=== PATIENT | female | born 1955 | race Caucasian/White ===

== ENCOUNTER → 2022-03-04 10:58 | Outpatient (BNVA) | payer MEDICARE, SELFPAY | PROVIDERS: PCP Physician Assistant Medical; Visit Provider Internal Medicine Rheumatology | DX: M05.9 Rheumatoid arthritis with rheumatoid factor, unspecified (principal); M81.0 Age-related osteoporosis without current pathological fracture; Z79.899 Other long term (current) drug therapy | CPT/HCPCS: 99212 ==

== ENCOUNTER 2022-07-08 14:11 | Outpatient (REF) | payer MEDICARE, SELFPAY ==
[2022-07-08 14:25] LABS: MANUAL DIFF FLAG NO
[2022-07-08 14:43] LABS: Basophils Percent Auto 0.5 % (0-2); Eosinophils Absolute Auto 0.1 X10*3/uL (0.0-0.4); Eosinophils Percent Auto 1.8 % (0-4); Hematocrit 37.4 % (37.0-47.0); Hemoglobin 12.3 g/dl (12.0-16.0); Imm Gran Abs Auto 0.02 X10*3/uL (0.00-0.03); Imm Gran Pct Auto 0.3 % (0.0-0.4); Lymphocytes Absolute Auto 1.4 X10*3/uL (1.2-4.9); Lymphocytes Percent Auto 20.7 % (20-40); Mean Corpuscular HGB Conc 32.9 g/dl (31.0-35.0); Mean Corpuscular Hemoglobin 31.5 pg (27.0-33.0); Mean Corpuscular Volume 95.9 fL (80.0-98.0); Mean Platelet Volume 10.4 fL (9.4-12.3); Monocytes Absolute Auto 0.6 X10*3/uL (0.1-1.2); Monocytes Percent Auto 9.5 % (2-11); Neutrophils Absolute Auto 4.5 x10*3/uL (2.0-8.3); Neutrophils Percent Auto 67.2 % (45-73); Platelet Count 302 X10*3/uL (160-400); White Blood Count 6.7 X10*3/uL (4.8-10.8)
[2022-07-08 15:04] LABS: Alanine Aminotransferase 21 U/L (0-31); Aspartate Amino Transferase 19 U/L (5-31); C Reactive Protein 0.42 mg/dL (< or = 0.50); Estimated Glomerular Filt Rate > 60
[2022-07-08 15:23] LABS: Erythrocyte Sedimentation Rate 7 MM/HR (0-20)
== END 2022-07-08 14:12 | disposition home or self-care (01) ==
LOC: HO.LAB 14:11
PROVIDERS: PCP Physician Assistant Medical; Visit Provider Internal Medicine Rheumatology
DX: M05.9 Rheumatoid arthritis with rheumatoid factor, unspecified (principal); Z79.899 Other long term (current) drug therapy
CPT/HCPCS: 36415; 82565; 84450; 84460; 85025; 85652; 86140

== ENCOUNTER → 2022-07-16 08:39 | Outpatient (BNVA) | payer MEDICARE, SELFPAY | PROVIDERS: PCP Physician Assistant Medical; Visit Provider Internal Medicine Rheumatology | DX: M05.9 Rheumatoid arthritis with rheumatoid factor, unspecified (principal); M81.0 Age-related osteoporosis without current pathological fracture; Z79.899 Other long term (current) drug therapy | CPT/HCPCS: 99212 ==

== ENCOUNTER 2022-10-24 08:04 | Outpatient (REF) | payer MEDICARE, SELFPAY ==
[2022-10-24 10:22] LABS: MANUAL DIFF FLAG NO
[2022-10-24 10:29] LABS: Basophils Absolute Auto 0.1 X10*3/uL (0.0-0.2); Basophils Percent Auto 0.7 % (0-2); Eosinophils Absolute Auto 0.2 X10*3/uL (0.0-0.4); Eosinophils Percent Auto 2.3 % (0-4); Hematocrit 39.4 % (37.0-47.0); Hemoglobin 12.9 g/dl (12.0-16.0); Imm Gran Abs Auto 0.03 X10*3/uL (0.00-0.03); Imm Gran Pct Auto 0.3 % (0.0-0.4); Lymphocytes Absolute Auto 1.9 X10*3/uL (1.2-4.9); Lymphocytes Percent Auto 21.3 % (20-40); Mean Corpuscular HGB Conc 32.7 g/dl (31.0-35.0); Mean Corpuscular Hemoglobin 31.6 pg (27.0-33.0); Mean Corpuscular Volume 96.6 fL (80.0-98.0); Mean Platelet Volume 11.2 fL (9.4-12.3); Monocytes Percent Auto 11.5 % (2-11); Neutrophils Absolute Auto 5.6 x10*3/uL (2.0-8.3); Neutrophils Percent Auto 63.9 % (45-73); Platelet Count 392 X10*3/uL (160-400); Red Blood Count 4.08 X10*6/uL (4.20-5.50); Red Cell Distribution Width 12.8 % (11.0-16.0); White Blood Count 8.8 X10*3/uL (4.8-10.8)
[2022-10-24 10:42] LABS: Alanine Aminotransferase 17 U/L (0-31); Aspartate Amino Transferase 20 U/L (5-31); C Reactive Protein 0.47 mg/dL (< or = 0.50); Estimated Glomerular Filt Rate > 60
[2022-10-24 11:58] LABS: Erythrocyte Sedimentation Rate 11 MM/HR (0-20)
== END 2022-10-24 08:05 | disposition home or self-care (01) ==
LOC: HO.10HDL 08:04
PROVIDERS: Visit Provider Internal Medicine Rheumatology
DX: M05.9 Rheumatoid arthritis with rheumatoid factor, unspecified (principal); Z79.899 Other long term (current) drug therapy
CPT/HCPCS: 36415; 82565; 84450; 84460; 85025; 85652; 86140

== ENCOUNTER → 2022-11-13 11:14 | Outpatient (BNVA) | payer MEDICARE, SELFPAY | PROVIDERS: PCP Physician Assistant Medical; Visit Provider Internal Medicine Rheumatology | DX: M05.9 Rheumatoid arthritis with rheumatoid factor, unspecified (principal); H10.9 Unspecified conjunctivitis; Z79.899 Other long term (current) drug therapy | CPT/HCPCS: 99212 ==

== ENCOUNTER 2023-03-20 11:07 | Outpatient (REF) | payer MEDICARE, SELFPAY ==
[2023-03-20 12:57] LABS: MANUAL DIFF FLAG NO
[2023-03-20 12:59] LABS: Basophils Percent Auto 0.5 % (0-2); Eosinophils Absolute Auto 0.1 X10*3/uL (0.0-0.4); Eosinophils Percent Auto 1.3 % (0-4); Hemoglobin 12.4 g/dl (12.0-16.0); Imm Gran Abs Auto 0.02 X10*3/uL (0.00-0.03); Imm Gran Pct Auto 0.3 % (0.0-0.4); Lymphocytes Absolute Auto 1.2 X10*3/uL (1.2-4.9); Lymphocytes Percent Auto 16.2 % (20-40); Mean Corpuscular HGB Conc 32.6 g/dl (31.0-35.0); Mean Corpuscular Hemoglobin 31.1 pg (27.0-33.0); Mean Corpuscular Volume 95.2 fL (80.0-98.0); Mean Platelet Volume 11.2 fL (9.4-12.3); Monocytes Absolute Auto 0.7 X10*3/uL (0.1-1.2); Monocytes Percent Auto 8.7 % (2-11); Neutrophils Absolute Auto 5.5 x10*3/uL (2.0-8.3); Platelet Count 294 X10*3/uL (160-400); Red Blood Count 3.99 X10*6/uL (4.20-5.50); Red Cell Distribution Width 12.9 % (11.0-16.0); White Blood Count 7.6 X10*3/uL (4.8-10.8)
[2023-03-20 13:17] LABS: Alanine Aminotransferase 22 U/L (0-31); Aspartate Amino Transferase 23 U/L (5-31); C Reactive Protein 0.11 mg/dL (< or = 0.50); Estimated Glomerular Filt Rate > 60
[2023-03-20 13:42] LABS: Erythrocyte Sedimentation Rate 6 MM/HR (0-20)
== END 2023-03-20 11:08 | disposition home or self-care (01) ==
LOC: HO.10HDL 11:07
PROVIDERS: Visit Provider Internal Medicine Rheumatology
DX: M05.9 Rheumatoid arthritis with rheumatoid factor, unspecified (principal); Z79.899 Other long term (current) drug therapy
CPT/HCPCS: 36415; 82565; 84450; 84460; 85025; 85652; 86140

== ENCOUNTER → 2023-03-26 11:35 | Outpatient (BNVA) | payer MEDICARE, SELFPAY | PROVIDERS: PCP Physician Assistant Medical; Visit Provider Internal Medicine Rheumatology | DX: M05.9 Rheumatoid arthritis with rheumatoid factor, unspecified (principal); M81.0 Age-related osteoporosis without current pathological fracture; M75.82 Other shoulder lesions, left shoulder; Z79.899 Other long term (current) drug therapy | CPT/HCPCS: 99212 ==

== ENCOUNTER 2023-08-12 11:55 | Outpatient (REF) | payer MEDICARE, SELFPAY ==
[2023-08-12 13:39] LABS: MANUAL DIFF FLAG NO
[2023-08-12 13:49] LABS: Basophils Absolute Auto 0.1 X10*3/uL (0.0-0.2); Basophils Percent Auto 0.8 % (0-2); Eosinophils Absolute Auto 0.1 X10*3/uL (0.0-0.4); Eosinophils Percent Auto 1.5 % (0-4); Hematocrit 39.7 % (37.0-47.0); Hemoglobin 12.8 g/dl (12.0-16.0); Imm Gran Abs Auto 0.01 X10*3/uL (0.00-0.03); Imm Gran Pct Auto 0.2 % (0.0-0.4); Lymphocytes Absolute Auto 1.3 X10*3/uL (1.2-4.9); Lymphocytes Percent Auto 20.4 % (20-40); Mean Corpuscular HGB Conc 32.2 g/dl (31.0-35.0); Mean Corpuscular Hemoglobin 31.4 pg (27.0-33.0); Mean Corpuscular Volume 97.5 fL (80.0-98.0); Monocytes Absolute Auto 0.6 X10*3/uL (0.1-1.2); Monocytes Percent Auto 9.2 % (2-11); Neutrophils Absolute Auto 4.2 x10*3/uL (2.0-8.3); Neutrophils Percent Auto 67.9 % (45-73); Platelet Count 307 X10*3/uL (160-400); Red Blood Count 4.07 X10*6/uL (4.20-5.50); Red Cell Distribution Width 13.1 % (11.0-16.0); White Blood Count 6.1 X10*3/uL (4.8-10.8)
[2023-08-12 14:19] LABS: Alanine Aminotransferase 23 U/L (0-31); Aspartate Amino Transferase 22 U/L (5-31); C Reactive Protein 0.15 mg/dL (< or = 0.50); Estimated Glomerular Filt Rate > 60
[2023-08-12 14:44] LABS: Erythrocyte Sedimentation Rate 3 MM/HR (0-20)
== END 2023-08-12 11:56 | disposition home or self-care (01) ==
LOC: HO.10HDL 11:55
PROVIDERS: Visit Provider Internal Medicine Rheumatology
DX: M05.9 Rheumatoid arthritis with rheumatoid factor, unspecified (principal); Z79.899 Other long term (current) drug therapy
CPT/HCPCS: 36415; 82565; 84450; 84460; 85025; 85652; 86140

== ENCOUNTER 2023-08-13 10:03 | Outpatient (AMB) | payer MEDICARE, SELFPAY ==
[2023-08-13 10:06] VITALS: BP 122/74; PULSE 77; TEMP 36.4; O2SAT 97; BMI 24.3
--- NOTE | 2023-08-13 10:06 | A.OFFVIS_ITS ---
Intake Vital Signs 08/13/23 10:06 Height 5 ft 2 in Weight 132 lb 15.02 oz BMI 24.3 BP 122/74 Blood Pressure Location Lt brachial Position Sitting Pulse 77 Pulse Source Pulse Oximeter Temp 97.5 F Temp Source Skin Pulse Oximetry (%) 97 Oxygen Delivery Method Room Air Intake Visit Reasons: RA Intake Note: Patient presents today to follow up on RA. Muskrat Trapper Required: No Accompanied by: Self / Same As Patient Allergies bee venom protein (honey bee) Allergy (Severe, Verified 08/13/23 10:11) Anaphylaxis Medication List - Last Reconciled 08/13/23 by Channing Park MD alendronate 70 mg PO QWEEK amlodipine-benazepril 5-10 mg 1 cap PO DAILY atorvastatin 20 mg PO DAILY betamethasone, augmented 0.05 % 1 appl topical BID bupropion HCl 150 mg PO BID cholecalciferol (vitamin D3) 50 mcg PO DAILY cyclobenzaprine 5 mg PO BEDTIME epinephrine 0.3 mg IM Q4H PRN fluticasone propionate 50 mcg/actuation (Allergy Relief (fluticasone)) 2 sprays intranasal DAILY PRN folic acid 0.8 mg PO DAILY hydroxychloroquine (Plaquenil) 200 mg PO DAILY methotrexate sodium 7.5 mg (3 x 2.5 mg) PO QWEEK rxcspfpy-ciz-DP-lycopen-lutein 0.4 mg-300 mcg- 250 mcg (Centrum Silver) 1 tab PO DAILY nabumetone 500 mg PO BID PRN omega 9-lur-qzu-fish oil 1,200 (144-216) mg (Fish Oil) 2 caps PO DAILY sulfacetamide sodium 10% 1 drp ophthalmic-Left Q1H HPI HPI Comments History of Present Illness Details The patient returns for evaluation of her osteoporosis and rheumatoid arthritis. She says she is feeling well with no significant joint discomfort. Currently she is on hydroxychloroquine 200 mg daily, methotrexate 7.5 mg weekly, folic acid 1 mg daily and occasionally she takes some nabumetone or ibuprofen. She remains on the alendronate 70 mg weekly. She does not seem to have any side effects with her medication. [facility] Medical History Cholelithiasis History of lung cancer Hyperlipidemia Hypertension Long-term use of immunosuppressant medication Osteoporosis Seropositive rheumatoid arthritis Surgical History S/P lobectomy of lung Social History Household Members: Spouse Housing: House Are you a primary respiratory care instructor to a significant other at home: No Do you presently have visiting nurse or other home services: No 75 years or older and lives alone: No Alcohol intake: current Alcohol intake frequency: a few times a week Alcohol type: beer and hard liquor Patient Tobacco Use Status: Former Tobacco user Years Smoked: quit 5 years ago e-Cigarette/Vaping Use: Never Used service: No Current occupational status: retired Review of Systems Const Details: Negative for appetite change, weight change, fever, chills, malaise and fatigue Eyes Details: Negative for vision change, dry eyes,headaches and dizziness Card Details: Negative chest pain, edema and syncope Resp Details: Negative for SOB, cough and wheezing GI Details: Negative indigestion/heartburn, nausea, abdominal pain, bowel changes, diarrhea, constipation and bloody stool. Endo Details: Negative for polyuria and polydypsia Froylan/Lymph Details: Negative for excessive bruising or bleeding. Physical Exam Vital Signs: Last Vital Signs Temp 97.5 F 08/13/23 10:06 Pulse 77 08/13/23 10:06 BP 122/74 08/13/23 10:06 Pulse Ox 97 08/13/23 10:06 Oxygen Delivery Method Room Air 08/13/23 10:06 BMI result Body Mass Index 24.3 APPEARANCE: Patient in no acute distress EYES no redness, pupils equal and reactive to light, eyelids normal JOINT EXAM: Cervical Spine:.? Full range of motion without pain; no tenderness. Thoracic Spine:.? No scoliosis.? No tenderness on palpation. Lumbar Spine:.? Alignment normal.? Full range of motion without pain, no tenderness. Chest Wall:.? No tenderness, swelling, increased warmth or erythema. Hands:? Right:? There is mild tenderness with questionable bony enlargement at the base of the thumb? There is some slight puffiness?at the 2nd and 3rd MCP joints without tenderness.? She does have some slight thickening and tenderness at the 3rd PIP; this is the finger she fractured and a fall earlier this year. I see no redness or warmth.? There is some limitation of motion at the 3rd PIP.? Left:? Slight bony enlargement at the base of the thumb without tenderness.? Otherwise?there is no swelling or tenderness in the interphalangeal joints.? There is no flexor tendon triggering,?increased warmth or erythema. Wrists:.? Normal pain-free range of motion without tenderness, swelling, increased warmth or erythema. Elbows:. Normal pain-free range of motion without tenderness, swelling, increased warmth or erythema. Shoulders: Left: No discomfort with abduction at 180 degrees or with the extremes of normal internal or external rotation. There is some minimal anterior and posterior tenderness. There is no adenopathy, swelling, acromioclavicular joint tenderness, or abductor weakness. Right:?? Full range of motion without pain. No tenderness, weakness, swelling, increased warmth or erythema. Hips:.? Full range of motion without pain. Hip bursa:.? No tenderness. Knees:.?? Normal pain-free range of motion without crepitation, effusion, swelling, increased warmth or erythema.? There is some discomfort with heavy pressure over the patellae. Ankles:.? Normal pain-free range of motion without tenderness, swelling, increased warmth or erythema. Feet:? Normal pain-free range of motion with some mild bony enlargement at the 1st MTP bilaterally.? This area is slightly tender.? Elsewhere there is no? tenderness, swelling, increased warmth or erythema. Results Reviewed Results Reviewed: Laboratory Tests 08/12/23 12:03 WBC 6.1 Hgb 12.8 ESR 3 Creatinine 0.77 AST 22 ALT 23 C-Reactive Protein 0.15 Assessment & Plan Assessment & Plan (1) Osteoporosis: Comment: 09/28 T scores: hip -1.4, LS spine -2.7. 10/01 T scores hip -2.8; LS spine -2.8. On alendronate 2004 - 04/07 T scores: hip -2.9; LS spine -3.2 Alendronate restarted 04/07 DEXA: LS spine -2.6; Hip -2.8 Code(s): M81.0 - Age-related osteoporosis without current pathological fracture (2) Long-term use of immunosuppressant medication: Code(s): Z79.899 - Other long-term (current) drug therapy (3) Seropositive rheumatoid arthritis: Comment: Onset 10/27: mostly hands and feet; RF, CCP positive; hydroxychloroquine started 09/26 - eye exam 04/29, 12/01, 12/02, 12/31, 07/03, 12/31, 01/01, 08/03. 08/04, 03/05, 09/05, 10/06. 06/07, 11/2019, 05/2020, 03/2021, 03/2022, 10/2022 Erosions seen in feet, 02/25; methotrexate added 04/27 Code(s): M05.9 - Rheumatoid arthritis with rheumatoid factor, unspecified Plan Rheumatoid arthritis with I think good control of synovitis with current regimen. She had an eye exam earlier this year so I think she is okay to continue the hydroxychloroquine. Similarly the blood work looks good so she will stay with the methotrexate. I told her to continue on the alendronate. Next year a repeat DEXA might be reasonable to see if she has had big change from the last 1 from about 2 years ago. That would also be the 5th year that she has been on the 2nd go round of alendronate. Fortunately she has not had any fractures that we could attributed to osteoporosis. She is due for lab work again in September and November. A follow-up at 4 months would be appropriate. Orders: Orders Aspartate Amino Transferase Today M05.9 - Rheumatoid arthritis with rheumatoid factor, unspecified, Z79.899 - Other long-term (current) drug therapy Complete Blood Count Auto Diff 1 Month M05.9 - Rheumatoid arthritis with rheumatoid factor, unspecified, Z79.899 - Other long-term (current) drug therapy Creatinine Today M05.9 - Rheumatoid arthritis with rheumatoid factor, unspecified, Z79.899 - Other equipment operator intermodal yard (current) drug therapy Erythrocyte Sedimentation Rate 1 Month M05.9 - Rheumatoid arthritis with rheumatoid factor, unspecified C Reactive Protein 1 Month M05.9 - Rheumatoid arthritis with rheumatoid factor, unspecified Alanine Aminotransferase Today M05.9 - Rheumatoid arthritis with rheumatoid factor, unspecified, Z79.899 - Other equipment operator intermodal yard (current) drug therapy Coding Level of Care Code Est Pt Level 3 (72176) Diagnoses Osteoporosis M81.0 Long-term use of immunosuppressant medication Z79.899 Seropositive rheumatoid arthritis M05.9
== END 2023-08-13 10:36 | disposition home or self-care (01) ==
PROVIDERS: PCP Physician Assistant Medical; Visit Provider Internal Medicine Rheumatology
DX: M81.0 Age-related osteoporosis without current pathological fracture (principal); Z79.899 Other long term (current) drug therapy; M05.79 Rheumatoid arthritis with rheumatoid factor of multiple sites without organ or systems involvement
CPT/HCPCS: 99214

== ENCOUNTER → 2023-08-13 10:03 | Outpatient (BNVA) | payer MEDICARE, SELFPAY | PROVIDERS: PCP Physician Assistant Medical; Visit Provider Internal Medicine Rheumatology | DX: M05.9 Rheumatoid arthritis with rheumatoid factor, unspecified (principal); M81.0 Age-related osteoporosis without current pathological fracture; Z79.899 Other long term (current) drug therapy | CPT/HCPCS: 99212 ==

== ENCOUNTER 2023-12-04 11:14 | Outpatient (AMB) | payer MEDICARE, SELFPAY ==
--- NOTE | 2023-12-04 11:20 | MHC.OFFVIS ---
Intake Vital Signs 12/04/23 11:28 Height 5 ft 2 in Weight 130 lb BMI 23.8 BP 110/60 Blood Pressure Location Rt brachial Pulse 85 Pulse Source Auscultation Pulse Oximetry (%) 98 Oxygen Delivery Method Room Air Intake Visit Reasons: ra with explosive technician Intake Note: Patient last seen by Dr Park 08/13/23 presents today for follow up and test results. Marine Fuel Dock Attendant Required: No Accompanied by: Self / Same As Patient Allergies bee venom protein (honey bee) Allergy (Severe, Verified 12/04/23 11:20) Anaphylaxis HPI HPI Comments History of Present Illness Details Mrs. Huggins, 68yoF returns for Follow-up of her osteoporosis and Seropositive rheumatoid arthritis. She says she is feeling well with no significant joint discomfort. Currently she is on hydroxychloroquine 200 mg daily, methotrexate 7.5 mg weekly, folic acid 1 mg daily and occasionally she takes some nabumetone or ibuprofen. She remains on the alendronate 70 mg weekly. She does not seem to have any side effects with her medication. [facility] Medical History (Updated 12/04/23 @ 12:23 by ANTHONY Steele) Osteoarthritis of hands, bilateral Long-term use of immunosuppressant medication Cholelithiasis Hyperlipidemia Hypertension History of lung cancer Osteoporosis Seropositive rheumatoid arthritis Surgical History S/P lobectomy of lung Social History Household Members: Spouse Housing: House Are you a primary nonfarm animal caretaker to a significant other at home: No Do you presently have visiting nurse or other home services: No 75 years or older and lives alone: No Alcohol intake: current Alcohol intake frequency: a few times a week Alcohol type: beer and hard liquor Patient Tobacco Use Status: Former Tobacco user Years Smoked: quit 5 years ago e-Cigarette/Vaping Use: Never Used service: No Current occupational status: retired Review of Systems Const All systems reviewed & are unremarkable except as noted in HPI and below Physical Exam Vital Signs: Last Vital Signs Pulse 85 12/04/23 11:28 BP 110/60 12/04/23 11:28 Pulse Ox 98 12/04/23 11:28 Oxygen Delivery Method Room Air 12/04/23 11:28 BMI result Body Mass Index 23.8 APPEARANCE: Patient in no acute distress EYES no redness, pupils equal and reactive to light, eyelids normal JOINT EXAM: Cervical Spine:.? Full range of motion without pain; no tenderness. Thoracic Spine:.? No scoliosis.? No tenderness on palpation. Lumbar Spine:.? Alignment normal.? Full range of motion without pain, no tenderness. Chest Wall:.? No tenderness, swelling, increased warmth or erythema. Hands:? Right:? There is no tenderness but there is bony enlargement at the base of the thumb? There is some slight puffiness?at the 2nd and 3rd pip joints without tenderness.? She does have some slight thickening but no tenderness at the 3rd PIP; this is the finger she fractured and a fall earlier this year. I see no redness or warmth.? There is some limitation of motion at the 3rd PIP.? Left:? Slight bony enlargement at the base of the thumb without tenderness.? Otherwise?there is no swelling or tenderness in the interphalangeal joints.? There is no flexor tendon triggering,?increased warmth or erythema. Wrists:.? Normal pain-free range of motion without tenderness, swelling, increased warmth or erythema. Elbows:. Normal pain-free range of motion without tenderness, swelling, increased warmth or erythema. Shoulders: Left: No discomfort with abduction at 180 degrees or with the extremes of normal internal or external rotation. There is some minimal anterior and posterior tenderness. There is no adenopathy, swelling, acromioclavicular joint tenderness, or abductor weakness. Right:?? Full range of motion without pain. No tenderness, weakness, swelling, increased warmth or erythema. Hips:.? Full range of motion without pain. Hip bursa:.? No tenderness. Knees:.?? Normal pain-free range of motion without crepitation, effusion, swelling, increased warmth or erythema.? There is some discomfort with heavy pressure over the patellae. Ankles:.? Normal pain-free range of motion without tenderness, swelling, increased warmth or erythema. Feet:? Normal pain-free range of motion with some mild bony enlargement at the 1st MTP bilaterally.? This area is slightly tender.? Elsewhere there is no? tenderness, swelling, increased warmth or erythema. Assessment & Plan Assessment & Plan (1) Osteoporosis: Comment: 09/28 T scores: hip -1.4, LS spine -2.7. 10/01 T scores hip -2.8; LS spine -2.8. On alendronate 2004 - 04/07 T scores: hip -2.9; LS spine -3.2 Alendronate restarted 04/07 DEXA: LS spine -2.6; Hip -2.8 Code(s): M81.0 - Age-related osteoporosis without current pathological fracture Qualifiers: Osteoporosis type: age-related Presence of current pathological fracture: without current pathological fracture Qualified Code(s): M81.0 - Age-related osteoporosis without current pathological fracture (2) Long-term use of immunosuppressant medication: Code(s): Z79.899 - Other rodent exterminator (current) drug therapy (3) Seropositive rheumatoid arthritis: Comment: Onset 10/27: mostly hands and feet; RF, CCP positive; hydroxychloroquine started 09/26 - eye exam 04/29, 12/01, 12/02, 12/31, 07/03, 12/31, 01/01, 08/03. 08/04, 03/05, 09/05, 10/06. 06/07, 11/2019, 05/2020, 03/2021, 03/2022, 10/2022 Erosions seen in feet, 02/25; methotrexate added 04/27 Code(s): M05.9 - Rheumatoid arthritis with rheumatoid factor, unspecified (4) Osteoarthritis of hands, bilateral: Code(s): M19.041 - Primary osteoarthritis, right hand; M19.042 - Primary osteoarthritis, left hand Qualifiers: Osteoarthritis type: other secondary Qualified Code(s): M19.241 - Secondary osteoarthritis, right hand; M19.242 - Secondary osteoarthritis, left hand Plan #SeroPos RA: Mrs. Huggins with Rheumatoid arthritis which appears well controlled with current regimen. PE is was grossly normal but she does have some puffiness to right index finger and tenderness to the PIP joint. I have prescribed topical voltaren gel she can use to help with acute hand pain which she gets if she overworks her hands per patient. If the puffiness and tenderness remains at next visit, consider short course of Prednisone. #Osteoporosis: She will continue on the alendronate. I have ordered a repeat DEXA to be done in May, at the same time with her mammogram. to see if she has had big change from the last DEXA from 2020. This is the 5th year that she has been on the 2nd go round of alendronate. Fortunately she has not had any fractures that we could attributed to osteoporosis. Patient reports that she takes Vitamin D daily, but does not take calcium and does not remember the reason. I will obtain CMP and check calcium levels. She also may have upcoming dental work and is currently being evaluated for that. Patient is aware to discuss with dental provider that she is on Alendronate and to find out if the nature of the procedure will require that she goes on a drug holiday before and after surgery. Medication-related osteonecrosis of the jaw can occur with certain dental work. Therefore, it is highly recommended that we stop antiresorptive agents for?2?3 months?before and after invasive dental procedures. #Fpc Use: Labs are grossly normal so she will stay with the methotrexate. Patient denies any side effects of MTC and also takes Folic acid daily. She has seen the maintenance technician 2nd shift who says she is cleared to continue HCQ. She is due for lab work again 1 week before next visit. A follow-up at 4 months. I spent 40 minutes reviewing chart and diagnostics, evaluating patient, ordering and documenting. Orders: Orders XR DEXA axial skeleton 6 Months M81.0 - Age-related osteoporosis without current pathological fracture Erythrocyte Sedimentation Rate 4 Months M05.9 - Rheumatoid arthritis with rheumatoid factor, unspecified, Z79.899 - Other rodent exterminator (current) drug therapy C Reactive Protein 4 Months M05.9 - Rheumatoid arthritis with rheumatoid factor, unspecified, Z79.899 - Other rodent exterminator (current) drug therapy Complete Blood Count Auto Diff 4 Months M05.9 - Rheumatoid arthritis with rheumatoid factor, unspecified, Z79.899 - Other residential (current) drug therapy Comprehensive Met. Panel 4 Months M05.9 - Rheumatoid arthritis with rheumatoid factor, unspecified, Z79.899 - Other rodent exterminator (current) drug therapy Medications: New diclofenac sodium 1% apply to hands, massage hands. wrist and fingers. 2 grams topical BID 100 grams 1RF M05.9 - Rheumatoid arthritis with rheumatoid factor, unspecified, M19.041 - Primary osteoarthritis, right hand, M19.042 - Primary osteoarthritis, left hand folic acid 1 mg PO DAILY 90 tabs 1RF Coding Level of Care Code Est Pt Level 4 (96584) Diagnoses Age-related osteoporosis without current pathological fracture M81.0 Osteoporosis type: age-related Presence of current pathological fracture: without current pathological fracture Long-term use of immunosuppressant medication Z79.899 Seropositive rheumatoid arthritis M05.9 Other secondary osteoarthritis of both hands M19.241; M19.242 Osteoarthritis type: other secondary
[2023-12-04 11:28] VITALS: BP 110/60; PULSE 85; O2SAT 98; BMI 23.8
== END 2023-12-04 12:06 | disposition home or self-care (01) ==
PROVIDERS: PCP Physician Assistant Medical; Visit Provider Nurse Practitioner Family
DX: M05.79 Rheumatoid arthritis with rheumatoid factor of multiple sites without organ or systems involvement (principal); M81.0 Age-related osteoporosis without current pathological fracture; M19.241 Secondary osteoarthritis, right hand; M19.242 Secondary osteoarthritis, left hand; Z79.899 Other long term (current) drug therapy
CPT/HCPCS: 99215

== ENCOUNTER → 2023-12-04 11:14 | Outpatient (BNVA) | payer MEDICARE, SELFPAY | PROVIDERS: PCP Physician Assistant Medical; Visit Provider Nurse Practitioner Family | DX: M81.0 Age-related osteoporosis without current pathological fracture (principal); M05.9 Rheumatoid arthritis with rheumatoid factor, unspecified; M19.241 Secondary osteoarthritis, right hand; M19.242 Secondary osteoarthritis, left hand; Z79.899 Other long term (current) drug therapy | CPT/HCPCS: 99212 ==

== ENCOUNTER 2024-04-09 14:22 | Outpatient (REF) | payer MEDICARE, SELFPAY ==
[2024-04-09 14:35] LABS: MANUAL DIFF FLAG NO
[2024-04-09 14:47] LABS: Basophils Absolute Auto 0.1 X10*3/uL (0.0-0.2); Basophils Percent Auto 0.7 % (0-2); Eosinophils Absolute Auto 0.1 X10*3/uL (0.0-0.4); Eosinophils Percent Auto 0.6 % (0-4); Hematocrit 36.9 % (37.0-47.0); Hemoglobin 12.5 g/dl (12.0-16.0); Imm Gran Abs Auto 0.03 X10*3/uL (0.00-0.03); Imm Gran Pct Auto 0.4 % (0.0-0.4); Lymphocytes Absolute Auto 1.7 X10*3/uL (1.2-4.9); Lymphocytes Percent Auto 19.6 % (20-40); Mean Corpuscular HGB Conc 33.9 g/dl (31.0-35.0); Mean Corpuscular Hemoglobin 31.6 pg (27.0-33.0); Mean Corpuscular Volume 93.4 fL (80.0-98.0); Mean Platelet Volume 10.3 fL (9.4-12.3); Monocytes Absolute Auto 0.6 X10*3/uL (0.1-1.2); Monocytes Percent Auto 7.5 % (2-11); Neutrophils Absolute Auto 6.1 x10*3/uL (2.0-8.3); Neutrophils Percent Auto 71.2 % (45-73); Platelet Count 424 X10*3/uL (160-400); Red Blood Count 3.95 X10*6/uL (4.20-5.50); Red Cell Distribution Width 12.4 % (11.0-16.0); White Blood Count 8.6 X10*3/uL (4.8-10.8)
[2024-04-09 15:06] LABS: Alanine Aminotransferase 19 U/L (0-31); Albumin Level 4.6 g/dL (3.5-5.0); Alkaline Phosphatase 42 U/L (39-117); Anion Gap 13 (12-20); Aspartate Amino Transferase 18 U/L (5-31); Bilirubin Total 0.6 mg/dL (0.0-1.0); Blood Urea Nitrogen 20 mg/dL (9-16); C Reactive Protein 0.11 mg/dL (< or = 0.50); Calcium 9.9 mg/dL (8.4-10.2); Carbon Dioxide 29 mmol/L (22-29); Chloride 103 mmol/L (96-108); Estimated Glomerular Filt Rate > 60; Glucose Random 85 mg/dL (60-115); Potassium 4.7 mmol/L (3.3-5.1); Sodium 140 mmol/L (135-145); Total Protein 7.4 g/dL (6.5-8.0)
[2024-04-09 15:22] LABS: Erythrocyte Sedimentation Rate 7 MM/HR (0-20)
== END 2024-04-09 14:23 | disposition home or self-care (01) ==
LOC: HO.LAB 14:22
PROVIDERS: PCP Internal Medicine; Visit Provider Nurse Practitioner Family
DX: M05.9 Rheumatoid arthritis with rheumatoid factor, unspecified (principal); Z79.899 Other long term (current) drug therapy
CPT/HCPCS: 36415; 80053; 85025; 85652; 86140

== ENCOUNTER 2024-04-19 11:44 | Outpatient (AMB) | payer MEDICARE, SELFPAY ==
--- NOTE | 2024-04-19 11:54 | MHC.OFFVIS ---
Vital Signs 04/19/24 11:57 Height 5 ft 2 in Weight 126 lb 1.671 oz BMI 23.1 BP 112/70 Blood Pressure Location Rt brachial Position Sitting Pulse 70 Pulse Source Pulse Oximeter Pulse Oximetry (%) 97 Oxygen Delivery Method Room Air Intake Visit Reasons: SeroNeg RA/lm Intake Note: Patient presents for RA. Allergies bee venom protein (honey bee) Allergy (Severe, Verified 04/19/24 12:01) Anaphylaxis Medication List - Last Reconciled 04/19/24 by Talia Deras MD alendronate 70 mg PO QWEEK amlodipine-benazepril 5-10 mg 1 cap PO DAILY atorvastatin 20 mg PO DAILY betamethasone, augmented 0.05 % 1 appl topical BID bupropion HCl SR 150 mg PO BID cholecalciferol (vitamin D3) 50 mcg PO DAILY cyclobenzaprine 5 mg PO BEDTIME diclofenac sodium 1% 2 grams topical BID epinephrine 0.3 mg IM Q4H PRN fluticasone propionate 50 mcg/actuation (Allergy Relief (fluticasone)) 2 sprays intranasal DAILY PRN folic acid 1 mg PO DAILY hydroxychloroquine (Plaquenil) 200 mg PO DAILY methotrexate sodium 7.5 mg (3 x 2.5 mg) PO QWEEK citrmdkl-yae-YM-lycopen-lutein 0.4 mg-300 mcg- 250 mcg (Centrum Silver) 1 tab PO DAILY nabumetone 500 mg PO BID PRN omega 9-lph-mat-fish oil 1,200 (144-216) mg (Fish Oil) 2 caps PO DAILY sulfacetamide sodium 10% 1 drp ophthalmic-Left Q1H HPI Comments Details: This is a 68-year-old female with seropositive RA who presents for follow-up. On methotrexate 7.5 mg weekly, hydroxychloroquine 200 mg daily and folic acid 1 mg daily. She states that she is doing reasonably well overall. She continues to have intermittent flare-ups that occur every 2-3 weeks, affecting her thumbs, toes usually last 1-2 days. Usually triggered by increased activity. It improves with oral NSAIDs. She denies any cough or shortness of breath. Denies any weight change [facility] Medical History Osteoarthritis of hands, bilateral Long-term use of immunosuppressant medication Cholelithiasis Hyperlipidemia Hypertension History of lung cancer Osteoporosis Seropositive rheumatoid arthritis Surgical History S/P lobectomy of lung Social History Household Members: Spouse Housing: House Are you a primary intensive care unit nurse to a significant other at home: No Do you presently have visiting nurse or other home services: No 75 years or older and lives alone: No Alcohol intake: current Alcohol intake frequency: a few times a week Alcohol type: beer and hard liquor Patient Tobacco Use Status: Former Tobacco user Years Smoked: quit 5 years ago e-Cigarette/Vaping Use: Never Used service: No Current occupational status: retired Review of Systems [employer] Reports arthralgias, Reports joint swelling and Reports stiffness Physical Exam Vital Signs: Last Vital Signs Pulse 70 04/19/24 11:57 BP 112/70 04/19/24 11:57 Pulse Ox 97 04/19/24 11:57 Oxygen Delivery Method Room Air 04/19/24 11:57 BMI result Body Mass Index 23.1 Const General: cooperative, healthy appearing and comfortable Nutritional Appearance: average body habitus Orientation/consciousness: patient oriented x3 Limitations: no limitations HEENT Head: Yes normocephalic and Yes atraumatic Mouth: moist mucous membranes Resp Effort & Inspection: normal respiratory effort and able to speak in complete sentences Auscultation: clear to auscultation bilaterally Cardio Rate: regular rate Rhythm: regular rhythm Skin General skin exam: no rashes or lesions noted Neuro General: patient oriented x3 Extrem Other: Mild right 1st CMC joint tenderness No active synovitis otherwise right hand and wrist Normal range of motion of right elbow and shoulder without pain Mild subluxation of left thumb No active synovitis left hand, wrist elbow and shoulder No knee pain with full flexion-extension No ankle swelling or tenderness bilaterally Negative MTP squeeze test bilaterally Assessment & Plan Assessment & Plan (1) Seropositive rheumatoid arthritis: Comment: Onset 10/27: mostly hands and feet; RF, CCP positive; HCQ started 09/26 - eye exam 04/29, 12/01, 12/02, 12/31, 07/03, 12/31, 01/01, 08/03. 08/04, 03/05, 09/05, 10/06. 06/07, 11/2019, 05/2020, 03/2021, 03/2022, 10/2022 Erosions seen in feet, 02/25; MTX added 04/27 Code(s): M05.9 - Rheumatoid arthritis with rheumatoid factor, unspecified Category: Medical Plan: This is a 68-year-old female with seropositive RA who presents for follow-up. This is her 1st visit with me. She used to follow-up with Sonal Del Rosario. Patient is doing quite well overall on hydroxychloroquine 20 mg daily, methotrexate 7.5 mg weekly and folic acid 1 mg daily. Continues to have few flare-ups, the flare-ups are few and far in between and do not last long, usually resolve with NSAIDs Patient states that she now has to pay for her folic acid. Will switch folic acid to Leucovorin 5 mg weekly Continue methotrexate 7.5 mg weekly and hydroxychloroquine 20 mg daily Labs before next visit in 4 months (2) Osteoporosis: Comment: 09/28 T scores: hip -1.4, LS spine -2.7. 10/01 T scores hip -2.8; LS spine -2.8. On alendronate 2004 - 04/07 T scores: hip -2.9; LS spine -3.2 Alendronate restarted 04/07 DEXA: LS spine -2.6; Hip -2.8 Code(s): M81.0 - Age-related osteoporosis without current pathological fracture Category: Medical Qualifiers: Osteoporosis type: age-related Presence of current pathological fracture: without current pathological fracture Qualified Code(s): M81.0 - Age-related osteoporosis without current pathological fracture Plan: Continue with alendronate. Recheck DEXA scan this year. Scheduled 09/08/2024 (3) History of lung cancer: Comment: Right middle lobe lobectomy at [facility], 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 Code(s): Z85.118 - Personal history of other malignant neoplasm of bronchus and lung Category: Medical (4) Long-term use of immunosuppressant medication: Code(s): Z79.899 - Other intermediate accountant (current) drug therapy Category: Medical (5) Long-term use of hydroxychloroquine: Comment: eye exam 04/29, 12/01, 12/02, 12/31, 07/03, 12/31, 01/01, 08/03. 08/04, 03/05, 09/05, 10/06. 06/07, 11/2019, 05/2020, 03/2021, 03/2022, 10/2022, 11/2023 Code(s): Z79.899 - Other intermediate accountant (current) drug therapy Category: Medical Plan: Follow-up regularly with gas stove servicer helper Plan I spent 39 minutes reviewing patient's chart, evaluating patient, ordering diagnostic workup, counseling patient and documenting in the chart Orders: Orders XR DEXA axial skeleton 09/08/24 M81.0 - Age-related osteoporosis without current pathological fracture Complete Blood Count Auto Diff 4 Months K80.20 - Calculus of gallbladder without cholecystitis without obstruction, M05.9 - Rheumatoid arthritis with rheumatoid factor, unspecified Erythrocyte Sedimentation Rate 4 Months K80.20 - Calculus of gallbladder without cholecystitis without obstruction, M05.9 - Rheumatoid arthritis with rheumatoid factor, unspecified Comprehensive Met. Panel 4 Months K80.20 - Calculus of gallbladder without cholecystitis without obstruction, M05.9 - Rheumatoid arthritis with rheumatoid factor, unspecified C Reactive Protein 4 Months K80.20 - Calculus of gallbladder without cholecystitis without obstruction, M05.9 - Rheumatoid arthritis with rheumatoid factor, unspecified Vitamin D 25-OH (D2 and D3) 4 Months E55.9 - Vitamin D deficiency, unspecified Medications: New leucovorin calcium 5 mg PO DAILY 3 days 3 tabs 0RF leucovorin calcium Take the day after after you take methotrexate 5 mg PO QWEEK 12 tabs 0RF Changed From alendronate 70 mg PO QWEEK 12 tabs 3RF M81.0 - Age-related osteoporosis without current pathological fracture To alendronate Take 1 tab once weekly, 1st thing in the morning, on an empty stomach, with a large glass of water (at least 6 oz) and stay upright for 30 minutes 70 mg PO QWEEK 12 tabs 1RF M81.0 - Age-related osteoporosis without current pathological fracture Refilled hydroxychloroquine (Plaquenil) 200 mg PO DAILY 90 tabs 1RF M05.9 - Rheumatoid arthritis with rheumatoid factor, unspecified methotrexate sodium 7.5 mg (3 x 2.5 mg) PO QWEEK 36 tabs 1RF M05.9 - Rheumatoid arthritis with rheumatoid factor, unspecified Discontinued folic acid Discontinued Reason: Doctor's Order 1 mg PO DAILY 90 tabs 1RF Coding Level of Care Code Est Pt Level 5 (96470) Complex EM visit Add On G2211 Diagnoses Seropositive rheumatoid arthritis M05.9 Age-related osteoporosis without current pathological fracture M81.0 Osteoporosis type: age-related Presence of current pathological fracture: without current pathological fracture History of lung cancer Z85.118 Long-term use of immunosuppressant medication Z79.899 Long-term use of hydroxychloroquine Z79.899
[2024-04-19 11:57] VITALS: BP 112/70; PULSE 70; O2SAT 97; BMI 23.1
== END 2024-04-19 12:24 | disposition home or self-care (01) ==
PROVIDERS: PCP Internal Medicine; Visit Provider Student in an Organized Health Care Education/Training Program
DX: M05.79 Rheumatoid arthritis with rheumatoid factor of multiple sites without organ or systems involvement (principal); M81.0 Age-related osteoporosis without current pathological fracture; Z85.118 Personal history of other malignant neoplasm of bronchus and lung; Z79.899 Other long term (current) drug therapy
CPT/HCPCS: 99214; G2211

== ENCOUNTER → 2024-04-19 11:44 | Outpatient (BNVA) | payer MEDICARE, SELFPAY | PROVIDERS: PCP Internal Medicine; Visit Provider Student in an Organized Health Care Education/Training Program | DX: M05.9 Rheumatoid arthritis with rheumatoid factor, unspecified (principal); M81.0 Age-related osteoporosis without current pathological fracture; Z85.118 Personal history of other malignant neoplasm of bronchus and lung; Z79.899 Other long term (current) drug therapy | CPT/HCPCS: 99212 ==

== ENCOUNTER 2024-08-19 11:11 | Outpatient (REF) | payer MEDICARE, SELFPAY ==
[2024-08-19 11:56] LABS: Basophils Percent Auto 0.4 % (0-2); Eosinophils Absolute Auto 0.1 X10*3/uL (0.0-0.4); Eosinophils Percent Auto 1.3 % (0-4); Hematocrit 40.6 % (37.0-47.0); Hemoglobin 13.3 g/dl (12.0-16.0); Imm Gran Abs Auto 0.02 X10*3/uL (0.00-0.03); Imm Gran Pct Auto 0.3 % (0.0-0.4); MANUAL DIFF FLAG NO; Mean Corpuscular HGB Conc 32.8 g/dl (31.0-35.0); Mean Corpuscular Hemoglobin 31.7 pg (27.0-33.0); Mean Corpuscular Volume 96.7 fL (80.0-98.0); Mean Platelet Volume 10.7 fL (9.4-12.3); Monocytes Absolute Auto 0.5 X10*3/uL (0.1-1.2); Monocytes Percent Auto 7.1 % (2-11); Neutrophils Absolute Auto 5.7 x10*3/uL (2.0-8.3); Neutrophils Percent Auto 76.9 % (45-73); Platelet Count 327 X10*3/uL (160-400); Red Cell Distribution Width 12.3 % (11.0-16.0); White Blood Count 7.4 X10*3/uL (4.8-10.8)
[2024-08-19 12:27] LABS: Alanine Aminotransferase 25 U/L (0-31); Albumin Level 4.5 g/dL (3.5-5.0); Alkaline Phosphatase 54 U/L (39-117); Anion Gap 13 (12-20); Aspartate Amino Transferase 25 U/L (5-31); Bilirubin Total 0.7 mg/dL (0.0-1.0); Blood Urea Nitrogen 18 mg/dL (9-16); C Reactive Protein 0.37 mg/dL (< or = 0.50); Calcium 10.2 mg/dL (8.4-10.2); Carbon Dioxide 29 mmol/L (22-29); Chloride 104 mmol/L (96-108); Estimated Glomerular Filt Rate > 60; Glucose Random 145 mg/dL (60-115); Potassium 4.4 mmol/L (3.3-5.1); Sodium 142 mmol/L (135-145); Total Protein 7.4 g/dL (6.5-8.0)
[2024-08-19 12:42] LABS: Erythrocyte Sedimentation Rate 5 MM/HR (0-20)
[2024-08-24 15:09] LABS: Vitamin D 25-OH, D2 <4 ng/mL; Vitamin D 25-OH, D3 37 ng/mL; Vitamin D 25-OH, Total 37 ng/mL (30-100)
== END 2024-08-19 11:12 | disposition home or self-care (01) ==
LOC: HO.LAB 11:11
PROVIDERS: PCP Internal Medicine; Visit Provider Student in an Organized Health Care Education/Training Program
DX: M05.9 Rheumatoid arthritis with rheumatoid factor, unspecified (principal); K80.20 Calculus of gallbladder without cholecystitis without obstruction; E55.9 Vitamin D deficiency, unspecified
CPT/HCPCS: 36415; 80053; 82306; 85025; 85652; 86140

== ENCOUNTER 2024-08-23 09:14 | Outpatient (AMB) | payer MEDICARE, SELFPAY ==
--- NOTE | 2024-08-23 09:22 | A.OFFVIS_ITS ---
Vital Signs 08/23/24 09:26 Height 5 ft 2 in Weight 126 lb 1.671 oz BMI 23.1 BP 152/70 H Blood Pressure Location Lt brachial Position Sitting Pulse 68 Pulse Source Pulse Oximeter Pulse Oximetry (%) 98 Oxygen Delivery Method Room Air Intake Visit Reasons: RA/cm Intake Note: Patient pesents for RA. Allergies bee venom protein (honey bee) Allergy (Severe, Verified 08/23/24 09:25) Anaphylaxis Medication List - Last Reconciled 08/23/24 by Talia Deras MD alendronate 70 mg PO QWEEK amlodipine-benazepril 5-10 mg 1 cap PO DAILY atorvastatin 20 mg PO DAILY betamethasone, augmented 0.05 % 1 appl topical BID bupropion HCl SR 150 mg PO BID cholecalciferol (vitamin D3) 50 mcg PO DAILY cyclobenzaprine 5 mg PO BEDTIME diclofenac sodium 1% 2 grams topical BID epinephrine 0.3 mg IM Q4H PRN fluticasone propionate 50 mcg/actuation (Allergy Relief (fluticasone)) 2 sprays intranasal DAILY PRN hydroxychloroquine (Plaquenil) 200 mg PO DAILY leucovorin calcium 5 mg PO QWEEK methotrexate sodium 7.5 mg (3 x 2.5 mg) PO QWEEK pncdzgta-wbx-PY-lycopen-lutein 0.4 mg-300 mcg- 250 mcg (Centrum Silver) 1 tab PO DAILY nabumetone 500 mg PO BID PRN omega 3-vtt-xpq-fish oil 1,200 (144-216) mg (Fish Oil) 2 caps PO DAILY sulfacetamide sodium 10% 1 drp ophthalmic-Left Q1H HPI Comments Details: This is a 69-year-old female with seropositive RA who presents for follow-up. On methotrexate 7.5 mg weekly, hydroxychloroquine 200 mg daily and Leucovorin 5 mg weekly She states that she is doing reasonably well overall. She states that she is doing very well overall. She gets intermittent pain in her thumbs, usually ass ociated with activity. Intermittent pain in her knees usually with going up and down the stairs. Recently had cataract surgery [facility] Medical History Osteoarthritis of hands, bilateral Long-term use of immunosuppressant medication Cholelithiasis Hyperlipidemia Hypertension History of lung cancer Osteoporosis Seropositive rheumatoid arthritis Surgical History History of cataract surgery S/P lobectomy of lung Social History Household Members: Spouse Housing: House Are you a primary respiratory care program director to a significant other at home: No Do you presently have visiting nurse or other home services: No 75 years or older and lives alone: No Alcohol intake: current Alcohol intake frequency: a few times a week Alcohol type: beer and hard liquor Patient Tobacco Use Status: Former Tobacco user Years Smoked: quit 5 years ago e-Cigarette/Vaping Use: Never Used service: No Current occupational status: retired Review of Systems [facility] Reports arthralgias, Denies joint swelling and Denies stiffness Physical Exam Vital Signs: Last Vital Signs Pulse 68 08/23/24 09:26 BP 152/70 H 08/23/24 09:26 Pulse Ox 98 08/23/24 09:26 Oxygen Delivery Method Room Air 08/23/24 09:26 BMI result Body Mass Index 23.1 Const General: cooperative, healthy appearing and comfortable Nutritional Appearance: average body habitus Orientation/consciousness: patient oriented x3 Limitations: no limitations HEENT Head: Yes normocephalic and Yes atraumatic Mouth: moist mucous membranes Resp Effort & Inspection: normal respiratory effort and able to speak in complete sentences Auscultation: clear to auscultation bilaterally Cardio Rate: regular rate Rhythm: regular rhythm Skin General skin exam: no rashes or lesions noted Neuro General: patient oriented x3 Extrem Other: Mild right 1st CMC joint tenderness No active synovitis otherwise right hand and wrist Normal range of motion of right elbow and shoulder without pain Mild subluxation of left thumb No active synovitis left hand, wrist elbow and shoulder No knee pain with full flexion-extension No ankle swelling or tenderness bilaterally Negative MTP squeeze test bilaterally Assessment & Plan Assessment & Plan (1) Seropositive rheumatoid arthritis: Comment: Onset 10/27: mostly hands and feet; RF, CCP positive; HCQ started 09/26 - eye exam 04/29, 12/01, 12/02, 12/31, 07/03, 12/31, 01/01, 08/03. 08/04, 03/05, 09/05, 10/06. 06/07, 11/2019, 05/2020, 03/2021, 03/2022, 10/2022 Erosions seen in feet, 02/25; MTX added 04/27 Code(s): M05.9 - Rheumatoid arthritis with rheumatoid factor, unspecified Category: Medical Plan: This is a 69-year-old female with seropositive RA who presents for follow-up. Patient is doing quite well overall on hydroxychloroquine 200 mg daily, methotrexate 7.5 mg weekly and Leucovorin 5 mg weekly. Patient has a conversation with her rail car operator and Plaquenil was discussed. She was told that there were no signs of Plaquenil toxicity but may be a good idea to lower the dose. I think her RA has been very well controlled for years. Now would be a good time to lower her hydroxychloroquine and see how she does. Lower hydroxychloroquine to 200 mg every other day Continue methotrexate 7.5 mg weekly plus Leucovorin 5 mg weekly Labs before next visit in 4 months (2) Osteoporosis: Comment: 09/28 T scores: hip -1.4, LS spine -2.7. 10/01 T scores hip -2.8; LS spine -2.8. On alendronate 2004 - 04/07 T scores: hip -2.9; LS spine -3.2 Alendronate restarted 04/07 DEXA: LS spine -2.6; Hip -2.8 Code(s): M81.0 - Age-related osteoporosis without current pathological fracture Category: Medical Qualifiers: Osteoporosis type: age-related Presence of current pathological fracture: without current pathological fracture Qualified Code(s): M81.0 - Age- related osteoporosis without current pathological fracture Plan: Continue with alendronate. Recheck DEXA scan this year. Scheduled 09/08/2024 (3) History of lung cancer: Comment: Right middle lobe lobectomy at [facility], 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 Code(s): Z85.118 - Personal history of other malignant neoplasm of bronchus and lung Category: Medical (4) Long-term use of immunosuppressant medication: Code(s): Z79.899 - Other long term care social worker (current) drug therapy Category: Medical Plan: Monitor safety labs for methotrexate (5) Long-term use of hydroxychloroquine: Comment: eye exam 04/29, 12/01, 12/02, 12/31, 07/03, 12/31, 01/01, 08/03. 08/04, 03/05, 09/05, 10/06. 06/07, 11/2019, 05/2020, 03/2021, 03/2022, 10/2022, 11/2023 Code(s): Z79.899 - Other long term care social worker (current) drug therapy Category: Medical Plan: Follow-up regularly with rail car operator (6) Immunization counseling: Code(s): Z71.85 - Encounter for immunization safety counseling Category: Medical Plan: Patient received both flu vaccine and COVID booster this year. Plan I spent 39 minutes reviewing patient's chart, evaluating patient, ordering diagnostic workup, counseling patient and documenting in the chart Orders: Orders Complete Blood Count Auto Diff 4 Months M05.9 - Rheumatoid arthritis with rheumatoid factor, unspecified, Z79.899 - Other [place] [facility] (current) drug therapy Comprehensive Met. Panel 4 Months M05.9 - Rheumatoid arthritis with rheumatoid factor, unspecified, Z79.899 - Other [place] [facility] (current) drug therapy Erythrocyte Sedimentation Rate 4 Months M05.9 - Rheumatoid arthritis with rheumatoid factor, unspecified, Z79.899 - Other long term care social worker (current) drug therapy C Reactive Protein 4 Months M05.9 - Rheumatoid arthritis with rheumatoid factor, unspecified, Z79.899 - Other long term care social worker (current) drug therapy Medications: Refilled alendronate Take 1 tab once weekly, 1st thing in the morning, on an empty stomach, with a large glass of water (at least 6 oz) and stay upright for 30 minutes 70 mg PO QWEEK 12 tabs 1RF M81.0 - Age-related osteoporosis without current pathological fracture Coding Level of Care Code Est Pt Level 4 (85795) Complex EM visit Add On G2211 Diagnoses Seropositive rheumatoid arthritis M05.9 Age-related osteoporosis without current pathological fracture M81.0 Osteoporosis type: age-related Presence of current pathological fracture: without current pathological fracture History of lung cancer Z85.118 Long-term use of immunosuppressant medication Z79.899 Long-term use of hydroxychloroquine Z79.899 Immunization counseling Z71.85
[2024-08-23 09:26] VITALS: BP 152/70; PULSE 68; O2SAT 98; BMI 23.1
== END 2024-08-23 09:45 | disposition home or self-care (01) ==
LOC: HO.RHE 09:14
PROVIDERS: PCP Internal Medicine; Visit Provider Student in an Organized Health Care Education/Training Program
DX: M05.79 Rheumatoid arthritis with rheumatoid factor of multiple sites without organ or systems involvement (principal); M81.0 Age-related osteoporosis without current pathological fracture; Z85.118 Personal history of other malignant neoplasm of bronchus and lung; Z79.899 Other long term (current) drug therapy; Z71.85 Encounter for immunization safety counseling
CPT/HCPCS: 99214; G2211

== ENCOUNTER → 2024-08-23 09:14 | Outpatient (BNVA) | payer MEDICARE, SELFPAY | PROVIDERS: PCP Internal Medicine; Visit Provider Student in an Organized Health Care Education/Training Program | DX: M05.9 Rheumatoid arthritis with rheumatoid factor, unspecified (principal); M81.0 Age-related osteoporosis without current pathological fracture; Z85.118 Personal history of other malignant neoplasm of bronchus and lung; Z79.899 Other long term (current) drug therapy; Z71.85 Encounter for immunization safety counseling | CPT/HCPCS: 99212 ==

== ENCOUNTER 2024-12-16 12:16 | Outpatient (REF) | payer MEDICARE, SELFPAY ==
[2024-12-16 13:02] LABS: MANUAL DIFF FLAG NO
[2024-12-16 13:16] LABS: Basophils Percent Auto 0.5 % (0-2); Eosinophils Absolute Auto 0.1 X10*3/uL (0.0-0.4); Eosinophils Percent Auto 1.1 % (0-4); Hemoglobin 11.8 g/dl (12.0-16.0); Imm Gran Abs Auto 0.02 X10*3/uL (0.00-0.03); Imm Gran Pct Auto 0.2 % (0.0-0.4); Lymphocytes Absolute Auto 1.3 X10*3/uL (1.2-4.9); Lymphocytes Percent Auto 16.2 % (20-40); Mean Corpuscular HGB Conc 31.9 g/dl (31.0-35.0); Mean Corpuscular Hemoglobin 30.2 pg (27.0-33.0); Mean Corpuscular Volume 94.6 fL (80.0-98.0); Mean Platelet Volume 10.8 fL (9.4-12.3); Monocytes Absolute Auto 0.7 X10*3/uL (0.1-1.2); Monocytes Percent Auto 8.4 % (2-11); Neutrophils Percent Auto 73.6 % (45-73); Platelet Count 361 X10*3/uL (160-400); Red Blood Count 3.91 X10*6/uL (4.20-5.50); Red Cell Distribution Width 13.2 % (11.0-16.0); White Blood Count 8.1 X10*3/uL (4.8-10.8)
[2024-12-16 13:29] LABS: Alanine Aminotransferase 20 U/L (0-31); Albumin Level 4.2 g/dL (3.5-5.0); Alkaline Phosphatase 59 U/L (39-117); Anion Gap 10 (12-20); Aspartate Amino Transferase 22 U/L (5-31); Bilirubin Total 0.5 mg/dL (0.0-1.0); Blood Urea Nitrogen 20 mg/dL (9-16); C Reactive Protein 0.23 mg/dL (< or = 0.50); Calcium 9.4 mg/dL (8.4-10.2); Carbon Dioxide 30 mmol/L (22-29); Chloride 103 mmol/L (96-108); Estimated Glomerular Filt Rate > 60; Glucose Random 107 mg/dL (60-115); Potassium 4.1 mmol/L (3.3-5.1); Sodium 139 mmol/L (135-145); Total Protein 7.3 g/dL (6.5-8.0)
[2024-12-16 13:55] LABS: Erythrocyte Sedimentation Rate 10 MM/HR (0-20)
--- OUTSIDE RECORDS SUMMARY | 2024-12-16 14:43 | XMS_ITS | Encounter Summary ---
Author Organization [facility] Address [phone] [address] [place] [address] Care Team Providers Care Computer Engineer Name Role Phone Kike Field MD Primary Care Provider Unavaila [facility] Julio Louie MD Unavailable Encounter Details Date Type Department Care Team (Late st Contact Info) Description 01/08/2018 Procedure Pass [facility] - [place] [address] [facility] [address] [place] [address] Social History Tobacco Use Types Packs/Day Years Used Date Smoking Tobacco: Former Cigarettes 0.8 46 0 05/17/1971 - 05/17/2017 Smokeless Tobacco: Never Alcohol Use Standard Drinks/Week Comments Yes 0 (1 standard drink = 0.6 oz pur e alcohol) Sex and Gender Information Value Date Recorded Sex Assigned at Not on file Gender Identity Not on file Sexual Orientation Not on file documented as of this encounter Plan of Treatment Not on file documented as of this encounter Visit Diagnoses Not on filedocumented in this encounter Care Teams Computer Engineer Relationship Specialty Start Date End Date Kike Field MD PCP - General Internal Medicine 01/08/18 Julio Louie MD [address] [place] [address] [address] [email or web address] Primary Oncologist Medical Oncology 09/11/18 documented as of this encounter Additional Source Comments The information contained in this document represents components of the legal health record. It is not the complete legal health record.[facility]
--- OUTSIDE RECORDS SUMMARY | 2024-12-16 14:43 | XMS_ITS | Encounter Summary ---
Author Organization [facility] Address [phone] [place] [id number] Care Team Providers Care Risk Management Intern Name Role Phone Kike Field MD Primary Care Provider Julio Temple MD Unavailable [phone] Encounter Details Date Type Department Care Team (Late st Contact Info) Description 08/28/2023 Procedure Pass [facility], Ct Scan - [address] [address] Social History Tobacco Use Types Packs/Day Years Used Date Smoking Tobacco: Former Cigarettes 0.8 46 0 05/17/1971 - 05/17/2017 Smokeless Tobacco: Never Alcohol Use Standard Drinks/Week Comments Yes 0 (1 standard drink = 0.6 oz pur e alcohol) Education Answer Date Recorded Are you interested in more education? Not on kane e 02/14/2023 Are you concerned about learning? Not on file 02/14/2023 No 02/14/2023 No 02/14/2023 Digital Access Answer Date Recorded No 03/17/2023 No 03/17/2023 No 03/17/2023 Reliable internet access at home? Not on file 03/17/2023 Device with a working camera? Not on file Sex and Gender Information Value Date Recorded Sex Assigned at Not on file Gender Identity Not on file Sexual Orientation Not on file documented as of this encounter Plan of Treatment Not on file documented as of this encounter Visit Diagnoses Not on filedocumented in this encounter Care Teams Risk Management Intern Relationship Specialty Start Date End Date Kike Field MD PCP - General Internal Medicine 01/08/18 Julio Louie MD [address] [place] [address] [address] [email or web address] Primary Oncologist Medical Oncology 09/11/18 documented as of this encounter Additional Source Comments The information contained in this document represents components of the legal health record. It is not the complete legal health record.[facility]
--- OUTSIDE RECORDS SUMMARY | 2024-12-16 14:43 | XMS_ITS | Encounter Summary ---
Author Organization [facility] Address [phone] [place] [address] Care Team Providers Care Director Of Respiratory Therapy Name Role Phone Kike Field MD Primary Care Provider Kike Boone MD Primary Care Provider Unavaila Julio Vidal MD Unavailable [phone] Encounter Details Date Type Department Care Team (Late st Contact Info) Description 07/10/2017 Procedure Pass [facility] - [place] [address] [place] [address] [place] [address] Social History Tobacco Use Types Packs/Day Years [...] on filedocumented in this encounter Care Teams Director Of Respiratory Therapy Relationship Specialty Start Date End Date Kike Field MD PCP - General Internal Medicine 04/11/17 01/07/18 Kike Field MD PCP - General Internal Medicine 01/08/18 Julio Louie MD [address] [facility] Thoracic Oncology[address] [address] [email or web address] Primary Oncologist Medical Oncology 09/11/18 documented as of this encounter Additional Source Comments The information contained in this document represents components of the legal health record. It is not the complete legal health record.[facility]
--- OUTSIDE RECORDS SUMMARY | 2024-12-16 14:43 | XMS_ITS | Encounter Summary ---
Author Organization [facility] Address [phone] [address] [place] [address] Care Team Providers Care Cattle Alley Worker Name Role Phone Kike Field MD Primary Care Provider Unavaila [facility] Julio Louie MD Unavailable Encounter Details Date Type Department Care Team (Late st Contact Info) Description 06/27/2020 Procedure Pass [facility] for [facility] - [place] [address] [facility] [address] [place] [address] Social History Tobacco Use Types Packs/Day Years [...] on filedocumented in this encounter Care Teams Cattle Alley Worker Relationship Specialty Start Date End Date Kike Field MD PCP - General Internal Medicine 01/08/18 Julio Louie MD [address] [place] [address] [address] [email or web address] Primary Oncologist Medical Oncology 09/11/18 documented as of this encounter Additional Source Comments The information contained in this document represents components of the legal health record. It is not the complete legal health record.[facility]
--- OUTSIDE RECORDS SUMMARY | 2024-12-16 14:43 | XMS_ITS | Encounter Summary ---
Author Organization [facility] Address [phone] [place] [address] Care Team Providers Care Bottom Stop Attacher Name Role Phone Kike Field MD Primary Care Provider Kike Boone MD Primary Care Provider Unavaila Julio Vidal MD Unavailable [phone] Encounter Details Date Type Department Care Team (Late st Contact Info) Description 06/24/2017 Procedure Pass [facility] [address] [place] [id number] Social History Tobacco Use Types Packs/Day Years [...] on filedocumented in this encounter Care Teams Bottom Stop Attacher Relationship Specialty Start Date End Date Kike Field MD PCP - General Internal Medicine 04/11/17 01/07/18 Kike Field MD PCP - General Internal Medicine 01/08/18 Julio oLuie MD 10 [facility] Thoracic Oncology[address] [address] [email or web address] Primary Oncologist Medical Oncology 09/11/18 documented as of this encounter Additional Source Comments The information contained in this document represents components of the legal health record. It is not the complete legal health record.[facility]
--- OUTSIDE RECORDS SUMMARY | 2024-12-16 14:43 | XMS_ITS | Encounter Summary ---
Author Organization [facility] Address [phone] [address] [place] [address] Care Team Providers Care Implant Polisher Name Role Phone Kike Field MD Primary Care Provider Unavaila [facility] Julio Louie MD Unavailable Encounter Details Date Type Department Care Team (Late st Contact Info) Description 07/27/2020 Procedure Pass [facility] [place] [address] [facility] [address] [place] [address] Social History Tobacco Use Types Packs/Day Years [...] on filedocumented in this encounter Care Teams Implant Polisher Relationship Specialty Start Date End Date Kike Field MD PCP - General Internal Medicine 01/08/18 Julio Louie MD [address] [place] [address] [address] [email or web address] [email or web address] Primary Oncologist Medical Oncology 09/11/18 documented as of this encounter Additional Source Comments The information contained in this document represents components of the legal health record. It is not the complete legal health record.[facility]
--- OUTSIDE RECORDS SUMMARY | 2024-12-16 14:43 | XMS_ITS | Clinical Summary ---
Author Organization [facility] Address [phone] [place] [address] Care Team Providers Care Boring Machine Operator Helper Name Role Phone Kike Field MD Primary Care Provider Kara Julio Vidal MD Unavailable Allergies Active Allergy Reactions Criticality Noted Date Comments Bee Sting Kit Anaphylaxis High 06/16/2017 Medications Medication Sig Dispensed Refills Start Date End Date Status atorvastatin (LIPITOR) 20 MG tablet Take 20 mg by mouth Daily before dinner. Active hydroxychloroquine (PLAQUENIL) 200 mg tablet Take by mouth every evening. Active buPROPion (WELLBUTRIN SR) 150 MG SR 12 hr tablet Take 150 mg by mouth 2 (two) times a day. Active fluticasone propionate (FLONASE) 50 mcg/actuation nasal spray 2 sprays by Nasal route as needed. Active MULTIVITAMIN ORAL Take 1 tablet by mouth every evening. Active EPINEPHrine (EPIPEN, ADRENACLICK) 0.3 mg/0.3 mL auto-injector Inject 0.3 mg into the muscle as needed for anaphylaxis. Active Active Problems Problem Noted Date Diagnosed Date Primary lung cancer 06/24/2017 Assessment & Plan (09/02/2024 5:43 AM EST): Mrs. 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 Repeat scans, which we personally reviewed with [facility] radiology today, show no evidence of disease. Note is made of a new small (3 mm) nodule, but most likely infectious/inflammatory. Radiology recommends 1 year follow-up. Plan: - Repeat low dose chest CT in 1 year - Non-urgent thyroid ultrasound given report of nodule - No other issues. - All questions and concerns addressed. Support provided. Assessment & Plan (08/28/2023 2:14 PM EST): Mrs. 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 Repeat scans, which we personally reviewed with [facility] radiology today, show no evidence of disease. Plan: - Repeat low dose chest CT in 1 year - No other issues. - All questions and concerns addressed. Support provided. Assessment & Plan (08/23/2022 2:28 PM EDT): Mrs. 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 Repeat scans, which we personally reviewed with [facility] radiology today, show no evidence of disease. Plan: - As previously planned, she will now transition to low dose annual CT scan. - No other issues. - Return to clinic in [address] and scan review - All questions and concerns addressed. Support provided. Assessment & Plan (07/26/2021 3:47 PM EDT): Mrs. 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 Repeat scans, which we personally reviewed with [facility] radiology today, show no evidence of disease. Plan: - Plan for repeat chest CT in 12 months. - Will plan to transition to low dose CT scans annually thereafter - No other issues. - All questions and concerns addressed. Support provided. Assessment & Plan (07/27/2020 6:00 PM EDT): Mrs. 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 Repeat scans, which I personally reviewed with [facility] radiology today, show no evidence of disease. Plan: - Plan for repeat chest CT in 12 months. - No other issues. - All questions and concerns addressed. Support provided. Assessment & Plan (07/15/2019 1:47 PM EDT): Mrs. 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 Repeat scans, which I personally reviewed with [facility] radiology today, show no evidence of disease. Plan: - Plan for repeat chest CT in 12 months. - No other issues. - All questions and concerns addressed. Support provided. Assessment & Plan (01/25/2019 11:02 AM EDT): Mrs. 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 Repeat scans, which I personally reviewed with [facility] radiology today, show no evidence of disease. Plan: - Plan for repeat chest CT in 6 months. - No other issues. - All questions and concerns addressed. Support provided. Assessment & Plan (07/15/2018 9:02 AM EDT): Mrs. 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 Repeat scans, which I personally reviewed with [facility] radiology today, show no evidence of disease. Plan: - Plan for repeat chest CT in 6 months. - No other issues. - All questions and concerns addressed. Support provided. Assessment & Plan (01/20/2018 9:05 AM EDT): Mrs. 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 Repeat scans, which I personally reviewed with [facility] radiology today, show no evidence of disease. Plan: - Plan for repeat chest CT in 6 months. - No other issues. - All questions and concerns addressed. Support provided. Assessment & Plan (08/07/2017 9:41 PM EDT): Mrs. Huggins is a 62 year-old woman with a history of tobacco smoker and RA, who now presents to medical oncology with newly diagnosed NSCLC identified in the context of vague chest pain. Following biopsy confirmation of an adenocarcinoma, she underwent RML lobectomy with RUL wedge resection and mediastinal maria e dissection. Final pathology showed a 1.2 cm focus of adenocarcinoma along with a separate 2 mm focus of adenocarcinoma. All margins and mediastinal nodes were negative. The main question at this point is whether the two foci of adenocarcinoma represents the same cancer (i.e., a T3 lesion) or two separate malignancies (i.e., two T1a lesions). I explained that this would be the difference between stage IIB or two stage IA NSCLCs. In reviewing the pathology, the second focus of adenocarcinoma is extremely small (2 mm) and purely lepidic. Biology, this does not appear consistent with a stage IIB cancer - particularly in light of the lepidic histology. I explained that these two scenarios would have different implications for adjuvant chemotherapy recommendations. In general, adjuvant cisplatin-based chemotherapy is recommended for stage II-III NSCLCs, while it is contraindicated for stage IA disease. I explained that the absolute benefit with chemotherapy is approximately 5-10% based upon the LACE meta-analysis. Overall, my suspicion is that these two lesions represent separate primaries (i.e., she has two stage IA lesions). Collectively, we agreed to defer chemotherapy due to that suspicion. Plan: - Defer adjuvant chemotherapy. - Plan for repeat chest CT in 6 months. - All questions and concerns addressed. Support provided. Social History Tobacco Use Types Packs/Day Years [...] on file Sexual Orientation Not on file Last Filed Vital Signs Vital Sign Reading Time Taken Comments Blood Pressure 143/73 08/22/2022 1:44 PM EDT Pulse 74 08/22/2022 1:44 PM EDT Temperature 37.1 ??C (98.7 ??F) 08/22/2022 1:44 PM ED T Respiratory Rate 16 08/22/2022 1:44 PM EDT Oxygen Saturation 100% 08/22/2022 1:44 PM EDT Inhaled Oxygen Concentration - - Weight 60.3 kg (132 lb 14.4 oz) 08/22/2022 1:44 PM EDT Height 157.5 cm (5' 2 ) 06/24/2017 10:1 7 AM EDT Body Mass Index 24.31 06/24/2017 10:17 AM EDT Plan of Treatment Health Maintenance Due Date Last Done Comments LIPID PANEL 1953 DEPRESSION SCREENING 1965 SMOKING Hx and SMOKELESS TOBACCO SCREENING 1966 HEPATITIS B SCREENING 1971 HEPATITIS C SCREENING 1971 COLOGUARD 1998 COLONOSCOPY 1998 COLORECTAL CANCER SCREENING 1998 FIT TEST 1998 FOBT 1998 SIGMOIDOSCOPY 1998 VIRTUAL COLONOSCOPY 1998 OSTEOPOROSIS SCREENING INITIAL (ONE-TIME) 2018 MAMMOGRAM 11/25/2020 11/25/2018 Adult Td,Tdap Booster 07/25/2032 07/25/2022 , 04/25/2011, 09/05/2000 ZOSTER VACCINES Completed 12/28/2019, 09/19, 07/14/2013 RSV VACCINE Completed 07/24/2023 PNEUMOCOCCAL VACCINES (50+ years) Completed 12/23/2023, 08/26/2019, 2019, Additional history exists INFLUENZA VACCINE Completed 07/13/2024, , 2022, Additional history exists COVID-19 VACCINE Completed 08/02/2024, , 02/10/2023, Additional history exists HEPATITIS A VACCINES Aged Out No long er eligible based on patient's age to complete this topic HEPATITIS B VACCINES Aged Out No long er eligible based on patient's age to complete this topic HIB VACCINES Aged Out No longer eligi ble based on patient's age to complete this topic MENINGOCOCCAL VACCINES (ACWY) Aged Out No longer eligible based on patient's age to complete this topic Medical Devices Not on file Advance Directives Documents on File Type Date Recorded Patient Flat Bed Knitter Expl anation Healthcare Proxy 07/02/2017 1:48 PM * Full Code (Presumed) (Latest Code Status on File) Date Activated Date Inactivated Comments 06/24/2017 4:18 PM 06/27/2017 1:07 PM Care Teams Boring Machine Operator Helper Relationship Specialty Start Date End Date Kike Field MD PCP - General Internal Medicine 01/08/18 Julio Louie MD [address] [place] [address] [address] [email or web address] Primary Oncologist Medical Oncology 09/11/18 Additional Source Comments The information contained in this document represents components of the legal health record. It is not the complete legal health record.[facility]
--- OUTSIDE RECORDS SUMMARY | 2024-12-16 14:43 | XMS_ITS | Encounter Summary ---
Author Organization [facility] Address [phone] [address] [place] [address] Care Team Providers Care Field Return Repairer Name Role Phone Kike Field MD Primary Care Provider Unavaila [facility] Julio Louie MD Unavailable Encounter Details Date Type Department Care Team (Late st Contact Info) Description 07/09/2018 Procedure Pass [facility] [place] [address] [facility] [address] [place] [address] Social History Tobacco Use Types Packs/Day Years [...] on filedocumented in this encounter Care Teams Field Return Repairer Relationship Specialty Start Date End Date Kike Field MD PCP - General Internal Medicine 01/08/18 Julio Louie MD [address] [place] [address] [address] [email or web address] Primary Oncologist Medical Oncology 09/11/18 documented as of this encounter Additional Source Comments The information contained in this document represents components of the legal health record. It is not the complete legal health record.[facility]
--- OUTSIDE RECORDS SUMMARY | 2024-12-16 14:43 | XMS_ITS | Encounter Summary ---
Author Organization [facility] Address [phone] [place] [address] Care Team Providers Care Tool And Fixture Repairer Name Role Phone Kike Field MD Primary Care Provider UnavailKike Castle MD Primary Care Provider Unavaila Julio Vidal MD Unavailable [phone] Encounter Details Date Type Department Care Team (Late st Contact Info) Description 05/16/2017 Procedure Pass [facility] [address] [place] [address] Social History Tobacco Use Types Packs/Day Years Used Date Smoking Tobacco: Never Assessed Sex and Gender Information Value Date Recorded Sex Assigned at Not on file Gender Identity Not on file Sexual Orientation Not on file documented as of this encounter Plan of Treatment Not on file documented as of this encounter Visit Diagnoses Not on filedocumented in this encounter Care Teams Tool And Fixture Repairer Relationship Specialty Start Date End Date Kike Field MD PCP - General Internal Medicine 04/11/17 01/07/18 Kike Field MD PCP - General Internal Medicine 01/08/18 Julio Louie MD [address] [place] [address] [address] [email or web address] Primary Oncologist Medical Oncology 09/11/18 documented as of this encounter Additional Source Comments The information contained in this document represents components of the legal health record. It is not the complete legal health record.[facility]
--- OUTSIDE RECORDS SUMMARY | 2024-12-16 14:43 | XMS_ITS | Encounter Summary ---
Author Organization [facility] Address [phone] [place] [address] Care Team Providers Care Numerical Control Nesting Operator Name Role Phone Kike Field MD Primary Care Provider Unavaila [facility] Julio Louie MD Unavailable Encounter Details Date Type Department Care Team (Late st Contact Info) Description 08/23/2022 Procedure Pass [facility], Ct Scan - [address] [address] Social History Tobacco Use Types Packs/Day Years [...] on filedocumented in this encounter Care Teams Numerical Control Nesting Operator Relationship Specialty Start Date End Date Kike Field MD PCP - General Internal Medicine 01/08/18 Julio Loiue MD [address] [place] [address] [address] [email or web address] Primary Oncologist Medical Oncology 09/11/18 documented as of this encounter Additional Source Comments The information contained in this document represents components of the legal health record. It is not the complete legal health record.[facility]
--- OUTSIDE RECORDS SUMMARY | 2024-12-16 14:43 | XMS_ITS | Encounter Summary ---
Author Organization [facility] Address [phone] [address] [place] [address] Care Team Providers Care Hand Hose Cutter Name Role Phone Kike Field MD Primary Care Provider Unavaila [facility] Julio Louie MD Unavailable Encounter Details Date Type Department Care Team (Late st Contact Info) Description 07/26/2021 Procedure Pass [facility] - [place] [address] [place] [address] [place] [address] Social History Tobacco Use Types Packs/Day Years [...] on filedocumented in this encounter Care Teams Hand Hose Cutter Relationship Specialty Start Date End Date Kike Field MD PCP - General Internal Medicine 01/08/18 Julio Louie MD [address] [place] [address] [address] [email or web address] Primary Oncologist Medical Oncology 09/11/18 documented as of this encounter Additional Source Comments The information contained in this document represents components of the legal health record. It is not the complete legal health record.[facility]
--- OUTSIDE RECORDS SUMMARY | 2024-12-16 14:43 | XMS_ITS | Clinical Summary ---
Author Organization [facility] [address] [place] [address] [place] [id number] Phone Care Team Providers Care Lead Principal Technical Architect Name Role Phone Omari Robbins MD Primary Care Provider [phone] Surgical History Surgery Date Site/Laterality Comments APPENDECTOMY 1987 PROCEDURE: HISTORICAL APPENDECTOMY MYOMECTOMY 1987 PROCEDURE: VA LAPS MYOMECTOMY EXC 1-4 MYOMAS 250 GM/<; COMMENT: NOT LAPAROSCOPIC SECTION PROCEDURE: [facility] DELIVERY ONLY; COMMENT: x 2 TONSILLECTOMY AGE 2 PROCEDURE: HISTORICAL TONSILLECTOMY OTHER SURGICAL HISTORY 12/18/06 PROCEDURE: COLON CA SCRN NOT HI RSK IND; COMMENT: hyperplastic polyp. Repeat in ten years. OTHER SURGICAL HISTORY 03/26/2018 PROCEDURE: COLON CA SCRN NOT HI RSK IND; COMMENT: Normal; repeat in ten yrs Medical History Medical History Date Comments Osteoporosis, unspecified DX:Ost eoporosis, unspecified; COMMENT: on Fosamax for 5 years Unspecified sinusitis (chronic) DX:Unspecified sinusitis (chronic) Unspecified sinusitis (chronic) 04/28/2007 DX:Unspecified sinusitis (chronic) Rheumatoid arthritis(714.0) 03/14/2009 DX:R heumatoid arthritis(714.0); COMMENT: Onset 10/27: mostly hands and feet; RF, CCP positive; hydroxychloroquine started 09/26 Fracture, tibia and fibula -1970 DX:Fr acture, tibia and fibula; COMMENT: right Nodule of right lung 04/11/2017 DX:Nodule o f right lung; COMMENT: Referred to pulm/onc 12.6 mm spiculated nodule right middle lobe suspicious for malignancy Lung cancer, middle lobe (CMS/HCC) 09/04/2017 DX:Lung cancer, middle lobe (HCC); COMMENT: Right middle lobe lobectomy at [facility], 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 Lung cancer, lower lobe (CMS/HCC) DX:Lung cancer, lower lobe (HCC) Cholelithiasis 07/06/2020 DX:Cholelithiasi s; COMMENT: April 2020: Febrile episode with elevated LFTs. This resolved with antibiotics. Small gallstones seen on ultrasound. Currently declining cholecystectomy. 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 Mother PALPITATIONS, A RTHRITIS, HTN, CHOLESTEROL, PA Other Paternal Grandmother Sister Alive BIPOLAR, PHLEBI TIS Son Alive Social History Tobacco Use Types Packs/Day Years Used Date Smoking Tobacco: Former Cigarettes Q uit: 05/16/2017 Smokeless Tobacco: Never Alcohol Use Standard Drinks/Week Comments Yes 0 (1 standard drink = 0.6 oz pur e alcohol) Comments No Sex and Gender Information Value Date Recorded Sex Assigned at Not on file Legal Sex Female 6:40 AM EST Gender Identity Not on file Sexual Orientation Not on file Obstetrics History Para Term AB IAB SAB Ectopic Multiple Livin g Live Births 2 2 2 2 Date Outcome GA Total Labor Labor/2nd/3rd Weight Sex Type Anes PTL Ryann A1 A5 Name Clin Term Term Last Filed Vital Signs Vital Sign Reading Time Taken Comments Blood Pressure 130/70 01/28/2022 10:48 AM EDT Pulse 80 01/28/2022 10:48 AM EDT Temperature - - Respiratory Rate - - Oxygen Saturation - - Inhaled Oxygen Concentration - - Weight 59.4 kg (131 lb) 01/28/2022 10:48 AM EDT Height 157.5 cm (5' 2 ) 01/28/2022 10:48 AM EDT Body Mass Index 23.96 01/28/2022 10:48 AM EDT Plan of Treatment Health Maintenance Due Date Last Done Comments Cholesterol Screening (Lipid Panel) 09/28/2022 Colorectal Cancer Screening: Colonoscopy 09/28/2022 Depression Screening 09/28/2022 Falls Risk Assessment 09/28/2022 Hepatitis C Screening 09/28/2022 Medicare Annual Wellness Visit 09/28/2022 Social Influencers of Health Screening 09/28/2022 Hypertension/CHF/CAD Annual BMP Blood Test 08/22/2023 08/22/2022 Breast Cancer Screening 09/08/2026 09/08/20, 05/16/2023, 05/13/2022, Additional history exists DTaP,Tdap,and Td Vaccines (4 - Td or Tdap) 07/25/2032 07/25/2022, 04/25/2011, 09/05/2000 Osteoporosis Screening (Bone Density Screening) 09/08/2034 09/08/2024, 05/14/2021, 03/31/2019 Zoster Vaccines Completed 12/28/2019, 09/19, 07/14/2013 RSV Immunization Patients 60+ Years Old Completed 07/24/2023 Pneumococcal Vaccine: 50+ Years Completed 12/23/2023, 08/26/2019, 2019, Additional history exists Influenza Vaccine Completed 07/13/2024, , 07/05/2022, Additional history exists COVID-19 Vaccine Completed 08/02/2024, , 02/10/2023, Additional history exists HIB Vaccines Aged Out No longer eligi ble based on patient's age to complete this topic HPV Vaccines Aged Out No longer eligi ble based on patient's age to complete this topic Hepatitis A Vaccines Aged Out No long er eligible based on patient's age to complete this topic Hepatitis B Vaccines Aged Out No long er eligible based on patient's age to complete this topic IPV Vaccines Aged Out No longer eligi ble based on patient's age to complete this topic MMR Vaccines Aged Out No longer eligi ble based on patient's age to complete this topic Meningococcal ACWY Vaccine Aged Out N o longer eligible based on patient's age to complete this topic Meningococcal B Vacine Aged Out No lo nger eligible based on patient's age to complete this topic RSV Immunization Patients Under 20 months Aged Out No longer eligible based on patient's age to complete this topic Varicella Vaccines Aged Out No longer eligible based on patient's age to complete this topic Procedures Procedure Name Priority Date/Time Associated Diagnosis Comments MG MAMMO DIGITAL SCREENING W DEMETRIO BILAT Routine 09/08/2024 3:40 PM EST Encounter for screening mammogram for breast cancer BD BONE DENSITY DXA AXIAL SKELETON Routine 09/08/2024 2:34 PM EST Screening for osteoporosis from Last 3 Months or Most Recently Relevant to Health Maintenance Results * MG Mammo Digital Screening w Demetrio bilat (09/08/2024 3:40 PM EST) Anatomical Region Laterality Modality Breast Bilateral Mammography 09/09/2024 2:04 PM EST Impressions 09/09/2024 2:08 PM EST No mammographic evidence for malignancy. BI-RADS CATEGORY: 1 - NEGATIVE RECOMMENDATION: Screening bilateral mammogram is recommended in 1 year. Mammo Location: [facility], [address] [place] [address], [id number], . -------- FINAL REPORT -------- Dictated By: Salina Rainey Dictated Date: 09/09/2024 14:04 ET Assigned Physician: Salina Rainey Reviewed and Electronically Signed By: Salina Rainey Signed Date: 09/09/2024 14:08 ET Workstation ID: [id number] Transcribed By: Self Edit Transcribed Date: 09/09/2024 14:04 ET Narrative 09/09/2024 2:08 PM EST Bilateral screening mammogram. CLINICAL: 69 years old, Female, routine annual exam. COMPARISON: Prior mammograms, latest from 05/16/2023. ?? TECHNIQUE: Bilateral MLO and CC views were obtained digitally with 3-D mammogram (digital breast tomosynthesis). Computer-aided detection was utilized in evaluation of this exam (CAD). FINDINGS: There is no evidence of suspicious mass or architectural distortion. ??No worrisome calcifications are evident. ??There has been no significant change from prior exam(s). ?? BREAST DENSITY: C - The breasts are heterogeneously dense which may obscure small masses. Procedure Note Salina Rainey MD - 09/09/2024 Bilateral screening mammogram. CLINICAL: 69 years old, Female, routine annual exam. COMPARISON: Prior mammograms, latest from 05/16/2023. TECHNIQUE: Bilateral MLO and CC views were obtained digitally with 3-Dmammogram (digital breast tomosynthesis). Computer-aided detection wasutilized in evaluation of this exam (CAD). FINDINGS: There is no evidence of suspicious mass or architectural distortion. Noworrisome calcifications are evident. There has been no significantchange from prior exam(s). BREAST DENSITY: C - The breasts are heterogeneously dense which mayobscure small masses. IMPRESSION: No mammographic evidence for malignancy. BI-RADS CATEGORY: 1 - NEGATIVE RECOMMENDATION: Screening bilateral mammogram is recommended in 1 year. Mammo Location: [facility], [address] [place] [address], [id number], . -------- FINAL REPORT -------- Dictated By: Salina Rainey Dictated Date: 09/09/2024 14:04 ET Assigned Physician: Salina Rainey Reviewed and Electronically Signed By: Salina Rainey Signed Date: 09/09/2024 14:08 ET Workstation ID: [id number] Transcribed By: Self Edit Transcribed Date: 09/09/2024 14:04 ET us Omari Robbins MD IMG BI PROCEDURES Final Result * BD Bone Density DXA Axial Skeleton (09/08/2024 2:34 PM EST) Anatomical Region Laterality Modality Wrist, Hip, L-spine Bone Densito metry 09/08/2024 3:49 PM EST Impressions 09/08/2024 3:52 PM EST Osteoporosis by WHO criteria. The [facility] Department of Internal Medicine recommends using National Osteoporosis Foundation (NOF) guidelines in treatment decisions related to osteoporosis. NOF guidelines suggest considering treatment for postmenopausal women and men aged 50 or older presenting with the following: History of hip or vertebral fracture. T-score = -2.5 (DXA) at the femoral neck, total hip, or spine, after appropriate evaluation to exclude secondary causes. Low bone mass (T-score between -1.0 and -2.5 at the femoral neck or spine) AND a 10-year probability of a hip fracture = 3% OR a 10-year probability of a major osteoporosis-related fracture = 20% based on the [place]-adapted WHO algorithm Please note that all treatment decisions require clinical judgment and consideration of individual patient factors, including patient preferences, co-morbidities, previous drug use, risk factors not captured in the FRAX model (e.g., frailty, falls, vitamin D deficiency, increased bone turnover, interval significant decline in bone density) and possible under- or over-estimation of fracture risk by FRAX. Optional alternative screening schedule based on juan Trimble., [facility] November 07, 2011 for patients with osteopenia (based on hip BMD T-score) is as follows: * ??advanced osteopenia (T scores -2.00 to -2.49), BMD testing every year * ??moderate osteopenia (T scores -1.50 to -1.99), BMD testing every 5 years mild osteopenia or normal BMD (T scores -1.50 and higher), BMD testing every 15 years -------- FINAL REPORT -------- Dictated By: Emma Deluna Dictated Date: 09/08/2024 15:49 ET Assigned Physician: Emma Deluna Reviewed and Electronically Signed By: Emma Deluna Signed Date: 09/08/2024 15:52 ET Workstation ID: [id number] Transcribed By: Self Edit Transcribed Date: 09/08/2024 15:49 ET Narrative 09/08/2024 3:52 PM EST BONE DENSITY SCAN (DEXA): FINDINGS: Lumbar Spine T-score is -2.4. ?? (SD relative to 20-29 y/o adult) Z-score is -0.2. ??(SD relative to age matched peers) This is considered osteopenia by WHO criteria. Left Hip T-score is -2.8. Z-score is -0.9. This is considered osteoporosis by WHO criteria. Comparison exam(s): 05/11/2021. ??3.6% increase in lumbar spine bone mineral density which is statistically significant at the 95% confidence level. ??No statistically significant change in left hip bone mineral density. Lateral survey view of the thoracolumbar spine shows no significant compression deformities. Procedure Note Emma Deluna MD - 09/08/2024 BONE DENSITY SCAN (DEXA): FINDINGS: Lumbar Spine T-score is -2.4. (SD relative to 20-29 y/o adult) Z-score is -0.2. (SD relative to age matched peers) This is considered osteopenia by WHO criteria. Left Hip T-score is -2.8. Z-score is -0.9. This is considered osteoporosis by WHO criteria. Comparison exam(s): 05/11/2021. 3.6% increase in lumbar spine bonemineral density which is statistically significant at the 95% confidencelevel. No statistically significant change in left hip bone mineraldensity. Lateral survey view of the thoracolumbar spine shows no significantcompression deformities. IMPRESSION: Osteoporosis by WHO criteria. The [facility] Department of Internal Medicine recommendsusing National Osteoporosis Foundation (NOF) guidelines in treatmentdecisions related to osteoporosis. NOF guidelines suggest consideringtreatment for postmenopausal women and men aged 50 or older presentingwith the following: History of hip or vertebral fracture. T-score = -2.5 (DXA) at the femoral neck, total hip, or spine, afterappropriate evaluation to exclude secondary causes. Low bone mass (T-score between -1.0 and -2.5 at the femoral neck or spine)AND a 10-year probability of a hip fracture = 3% OR a 10-year probabilityof a major osteoporosis-related fracture = 20% based on the [place]-adapted WHOalgorithm Please note that all treatment decisions require clinical judgment andconsideration of individual patient factors, including patientpreferences, co-morbidities, previous drug use, risk factors not capturedin the FRAX model (e.g., frailty, falls, vitamin D deficiency, increasedbone turnover, interval significant decline in bone density) and possibleunder- or over-estimation of fracture risk by FRAX. Optional alternative screening schedule based on juan Trimble., NEJMJanuary 2011 for patients with osteopenia (based on hip BMD T-score)is as follows: * advanced osteopenia (T scores -2.00 to -2.49), BMD testing every year * moderate osteopenia (T scores -1.50 to -1.99), BMD testing every 5years mild osteopenia or normal BMD (T scores -1.50 and higher), BMD testingevery 15 years -------- FINAL REPORT -------- Dictated By: Emma Deluna Dictated Date: 09/08/2024 15:49 ET Assigned Physician: Emma Deluna Reviewed and Electronically Signed By: Emma Deluna Signed Date: 09/08/2024 15:52 ET Workstation ID: [id number] Transcribed By: Self Edit Transcribed Date: 09/08/2024 15:49 ET Sonal Cruz SURGERY TEACHER IMG DXA PROCEDURES Fi nal Result from Last 3 Months or Most Recently Relevant to Health Maintenance Insurance MEDICARE [facility] Care Teams Lead Principal Technical Architect Relationship Specialty Start Date End Date Omari Robbins MD [id number] [place] [address] PCP - General 05/26/23
== END 2024-12-16 12:17 | disposition home or self-care (01) ==
LOC: HO.10HDL 12:16
PROVIDERS: Visit Provider Student in an Organized Health Care Education/Training Program
DX: M05.9 Rheumatoid arthritis with rheumatoid factor, unspecified (principal); Z79.899 Other long term (current) drug therapy
CPT/HCPCS: 36415; 80053; 85025; 85652; 86140

== ENCOUNTER 2024-12-21 09:50 | Outpatient (AMB) | payer MEDICARE, SELFPAY ==
--- NOTE | 2024-12-21 10:02 | MHC.OFFVIS ---
Vital Signs 12/21/24 10:12 Height 5 ft 2 in Weight 120 lb 13.013 oz BMI 22.1 BP 124/72 Blood Pressure Location Lt brachial Position Sitting Pulse 89 Pulse Source Pulse Oximeter Pulse Oximetry (%) 98 Oxygen Delivery Method Room Air Intake Visit Reasons: RA Intake Note: Patient presents for RA. Allergies bee venom protein (honey bee) Allergy (Severe, Verified 12/21/24 10:09) Anaphylaxis Medication List - Last Reconciled 12/21/24 by Rebecca Crowell MD alendronate 70 mg PO QWEEK amlodipine-benazepril 5-10 mg 1 cap PO DAILY atorvastatin 20 mg PO DAILY betamethasone, augmented 0.05 % 1 appl topical BID bupropion HCl SR 150 mg PO BID cholecalciferol (vitamin D3) 50 mcg PO DAILY cyclobenzaprine 5 mg PO BEDTIME diclofenac sodium 1% 2 grams topical BID epinephrine 0.3 mg IM Q4H PRN fluticasone propionate 50 mcg/actuation (Allergy Relief (fluticasone)) 2 sprays intranasal DAILY PRN hydroxychloroquine (Plaquenil) 200 mg PO DAILY leucovorin calcium 5 mg PO QWEEK methotrexate sodium 7.5 mg (3 x 2.5 mg) PO QWEEK hxoxnblp-vtx-OQ-lycopen-lutein 0.4 mg-300 mcg- 250 mcg (Centrum Silver) 1 tab PO DAILY nabumetone 500 mg PO BID PRN omega 0-abw-bcs-fish oil 1,200 (144-216) mg (Fish Oil) 2 caps PO DAILY sulfacetamide sodium 10% 1 drp ophthalmic-Left Q1H HPI Comments Details: Patient is a 69-year-old female with history of lung cancer currently in remission after right middle lobectomy, hyperlipidemia, hypertension, osteoporosis, polyarticular osteoarthritis and seropositive erosive (feet, 2009) rheumatoid arthritis here today for follow up Interval History: Patient last seen 08/23/[address] Deras. At that time she was on methotrexate, hydroxychloroquine and leucovorin. She was doing reasonably well overall intermittent pain in her thumbs and knees. Because she was doing so well with arthritis her Plaquenil was lowered to 200 mg every other day. Patient states that she tried to decrease her Plaquenil to every other day for 1 month however after the month she noticed more episodes of stiffness and pain involving her bilateral hands. And so she went back to daily Plaquenil. No fractures or falls Currently goes to a senior center twice a week and does weight exercises and balancing exercises Rheumatologic History: Seropositive erosive rheumatoid arthritis Onset 10/2007: mostly hands and feet; RF, CCP positive; HCQ started 09/26 Erosions seen in feet, 02/25; MTX added 04/27 Osteoporosis On alendronate 2004 - 09/28 T scores: hip -1.4, LS spine -2.7. 10/01 T scores hip -2.8; LS spine -2.8. 04/07 T scores: hip -2.9; LS spine -3.2 Alendronate restarted 04/07 DEXA: LS spine -2.6; Hip -2.8 Current Rheumatology Medication(s): Hydroxychloroquine 200 mg every other day Methotrexate 7.5 mg weekly Leucovorin 5 mg weekly Alendronate 70mg weekly [facility] Medical History Osteoarthritis of hands, bilateral Long-term use of immunosuppressant medication Cholelithiasis Hyperlipidemia Hypertension History of lung cancer Osteoporosis Seropositive rheumatoid arthritis Surgical History History of cataract surgery S/P lobectomy of lung Social History Household Members: Spouse Housing: House Are you a primary director of health care marketing to a significant other at home: No Do you presently have visiting nurse or other home services: No 75 years or older and lives alone: No Alcohol intake: current Alcohol intake frequency: a few times a week Alcohol type: beer and hard liquor Patient Tobacco Use Status: Former Tobacco user Years Smoked: quit 5 years ago e-Cigarette/Vaping Use: Never Used service: No Current occupational status: retired Review of Systems Const Details: Review of Systems Constitutional: Denies fever, chills, weight loss ENT: Denies vision changes, eye pain or eye redness, dental caries, dry mouth GI: Denies nausea, vomiting, diarrhea, abdominal pain, change in BM Pulm: Denies SOB, AMAYA, hemoptysis, wheezing Cards: Denies chest pain, palpitations Skin: Denies Raynaud's, rash, nail changes, photosensitivity, RAILROAD SWITCHMAN: Denies headaches, weakness, paresthesias, recurrent falls MSK: as per HPI All other systems reviewed and are unremarkable except noted above Physical Exam Vital signs reviewed Physical Examination CONSTITUITIONAL Patient alert and cooperative. Well appearing and in no apparent painful distress HEENT Conjunctiva and sclera clear. ?Pupils equal round and reactive to light. ?No lymphadenopathy. ? CHEST/RESPIRATORY SYSTEM Normal respiratory effort and able to speak in complete sentences. ?Clear to auscultation bilaterally. ?No crackles, rales, rhonchi, wheezes heard. CARDIAC SYSTEM Regular rate and rhythm. ?S1 and S2 heard no murmurs. ?Radial pulses intact bilaterally MSK Hands: ?Able to make a fist bilaterally. Right hand with mild ulnar deviation of the 2nd digit at the level of the PIP. There was mild fusiform swelling to the 2nd digit with tenderness to palpation of the PIP and MCP. All other joints were unremarkable. Heberden's nodes noted. Wrists: ?Full range of motion at the wrists without pain. ?No tenderness to palpation or synovitis noted to the wrists. Elbows: Full range of motion without pain. No tenderness, weakness, swelling, increased warmth or erythema. Shoulders: Full range of motion without pain. No tenderness, weakness, swelling, increased warmth or erythema. Hips: Full range of motion without pain. Hip bursa: No tenderness to palpation Knees: ?Full range of motion. ?No tenderness, swelling, increased warmth or erythema.? Bilateral crepitations felt Ankles: Full range of motion. ?No tenderness, swelling, increased warmth or erythema.? Feet: ?Positive squeeze test on the right with tenderness to palpation of the 5th MTP. Negative squeeze test on the left. Tender points:?No tenderness to palpation of the bilateral trapezius, supraspinatus, greater trochanters, anterior costochondral junctions, bilateral gluteal areas, bilateral suboccipital muscle insertions SKIN Skin intact without rashes. Results Reviewed Results Reviewed: Laboratory Tests 12/16/24 12:22 WBC 8.1 RBC 3.91 L Hgb 11.8 L Hct 37.0 Plt Count 361 ESR 10 Sodium 139 Potassium 4.1 Chloride 103 Carbon Dioxide 30 H BUN 20 H Creatinine 0.72 AST 22 ALT 20 Alkaline Phosphatase 59 C-Reactive Protein 0.23 Total Protein 7.3 Albumin 4.2 Assessment & Plan Assessment & Plan (1) Seropositive rheumatoid arthritis: Comment: Onset 10/27: mostly hands and feet; RF, CCP positive; HCQ started 09/26 - eye exam 04/29, 12/01, 12/02, 12/31, 07/03, 12/31, 01/01, 08/03. 08/04, 03/05, 09/05, 10/06. 06/07, 11/2019, 05/2020, 03/2021, 03/2022, 10/2022 Erosions seen in feet, 02/25; MTX added 04/27 Code(s): M05.9 - Rheumatoid arthritis with rheumatoid factor, unspecified Category: Medical Plan: #Seropositive erosive rheumatoid arthritis Patient is a 69-year-old female with seropositive erosive rheumatoid arthritis. Based on her examination she is currently in low disease activity. I think this is okay for this patient. Given her longstanding history and her desire to not increase her medications as she has been on these medications for a very long time. I discussed with her that her Plaquenil dose is been low the toxic dose of 5 milligrams/kilogram (272 mg daily) that it is okay for her to continue to take this medication daily as it is a low-dose and continue to follow up with her eye appointments. Plan - Methotrexate 7.5mg weekly - Folic acid 1 mg daily - Hydroxychlorquine 200mg daily - RTC 6 months - Labs before visit: CBC, CMP, ESR, CRP, hepatitis panel, T spot (2) Osteoporosis: Comment: 09/28 T scores: hip -1.4, LS spine -2.7. 10/01 T scores hip -2.8; LS spine -2.8. On alendronate 2004 - 04/07 T scores: hip -2.9; LS spine -3.2 Alendronate restarted 04/07 DEXA: LS spine -2.6; Hip -2.8 Code(s): M81.0 - Age-related osteoporosis without current pathological fracture Category: Medical Qualifiers: Osteoporosis type: age-related Presence of current pathological fracture: without current pathological fracture Qualified Code(s): M81.0 - Age-related osteoporosis without current pathological fracture Plan: #Osteoporosis Patient with age-related osteoporosis without current pathological fracture. Currently doing weight-bearing exercises and is on vitamin-D supplementation. We will need to get a DEXA to evaluate we will density and consider drug holiday from her alendronate. Plan - DEXA scan - Vitamin D supplementation - Consider alendronate drug holiday after DEXA results (3) Long-term use of hydroxychloroquine: Comment: eye exam 04/29, 12/01, 12/02, 12/31, 07/03, 12/31, 01/01, 08/03. 08/04, 03/05, 09/05, 10/06. 06/07, 11/2019, 05/2020, 03/2021, 03/2022, 10/2022, 11/2023 Code(s): Z79.899 - Other termite control technician (current) drug therapy Category: Medical Plan: #Long-term Use of Hydroxychloroquine Discussed with patient the risks and benefits of hydroxychloroquine in managing the rheumatic condition Benefits include: - Reduced pain, reduce mortality, maintenance of remission and reduction of flares Risks include: - GI upset, skin hyperpigmentation, retinal toxicity (especially after more than 5 years of use), myopathy Advised yearly ophthalmology visits Last ophthalmology visit: 11/2023 (4) Encounter for monitoring of methotrexate therapy: Code(s): Z51.81 - Encounter for therapeutic drug level monitoring; Z79.631 - jail (current) use of antimetabolite agent Plan: #Long-term Current Use of Methotrexate Discussed with patient the benefits and risks of methotrexate for managing their rheumatic condition Benefits include reduced pain, reduced mortality, maintenance of remission and reduction of flares Risks include oral ulcers, photosensitivity, hepatotoxicity, hematologic toxicity, pneumonitis, flu-like symptoms (especially day after administration), nodulosis, lymphomas ? Limit alcohol and avoid Bactrim ? Monitoring: ?CBC, BMP, LFTs every 3-4 months and hepatitis serologies as needed Plan I spent 30 minutes reviewing the record and labs, taking a history, examining the patient, discussing the treatment plan and documenting in the medical record Orders: Orders XR DEXA axial skeleton Today M81.0 - Age-related osteoporosis without current pathological fracture Comprehensive Met. Panel 6 Months M05.9 - Rheumatoid arthritis with rheumatoid factor, unspecified T Spot TB 6 Months M05.9 - Rheumatoid arthritis with rheumatoid factor, unspecified Vitamin D 25-OH Total 6 Months E55.9 - Vitamin D deficiency, unspecified Complete Blood Count Auto Diff 6 Months M05.9 - Rheumatoid arthritis with rheumatoid factor, unspecified C Reactive Protein 6 Months M05.9 - Rheumatoid arthritis with rheumatoid factor, unspecified Erythrocyte Sedimentation Rate 6 Months M05.9 - Rheumatoid arthritis with rheumatoid factor, unspecified Hepatitis A,B,C Profile 6 Months M05.9 - Rheumatoid arthritis with rheumatoid factor, unspecified Coding Level of Care Code Est Pt Level 4 (29018) Complex EM visit Add On G2211 Diagnoses Seropositive rheumatoid arthritis M05.9 Age-related osteoporosis without current pathological fracture M81.0 Osteoporosis type: age-related Presence of current pathological fracture: without current pathological fracture Long-term use of hydroxychloroquine Z79.899 Encounter for monitoring of methotrexate therapy Z51.81; Z79.631
[2024-12-21 10:12] VITALS: BP 124/72; PULSE 89; O2SAT 98; BMI 22.1
--- OUTSIDE RECORDS SUMMARY | 2024-12-21 11:21 | XMS_ITS | Encounter Summary ---
Author Organization [facility] Address [phone] [address] [place] [address] Care Team Providers Care Lithographers Printer Name Role Phone Kike Field MD Primary Care Provider Unavaila [facility] Julio Louie MD Unavailable [phone] Encounter Details Date Type Department Care Team (Late st Contact Info) Description 07/09/2018 Procedure Pass [facility] [place] [address] [facility] [address] [place] [address] Social History Tobacco Use Types Packs/Day Years [...] on filedocumented in this encounter Care Teams Lithographers Printer Relationship Specialty Start Date End Date Kike Field MD PCP - General Internal Medicine 01/08/18 Julio Louie MD [address] [place] [address] [address] [email or web address] Primary Oncologist Medical Oncology 09/11/18 documented as of this encounter Additional Source Comments The information contained in this document represents components of the legal health record. It is not the complete legal health record.[facility]
--- OUTSIDE RECORDS SUMMARY | 2024-12-21 11:22 | XMS_ITS | Encounter Summary ---
Author Organization [facility] Address [phone] [address] [place] [address] Care Team Providers Care Barking Machine Feeder Name Role Phone Kike Field MD Primary Care Provider Unavaila [facility] Julio Louie MD Unavailable Encounter Details Date Type Department Care Team (Late st Contact Info) Description 07/26/2021 Procedure Pass [facility] - [place] [address] [place] [address] [place] [address] Social History Tobacco Use Types Packs/Day Years [...] on filedocumented in this encounter Care Teams Barking Machine Feeder Relationship Specialty Start Date End Date Kike Field MD PCP - General Internal Medicine 01/08/18 Julio Louie MD [address] [place] [address] [address] [email or web address] Primary Oncologist Medical Oncology 09/11/18 documented as of this encounter Additional Source Comments The information contained in this document represents components of the legal health record. It is not the complete legal health record.[facility]
--- OUTSIDE RECORDS SUMMARY | 2024-12-21 11:22 | XMS_ITS | Encounter Summary ---
Author Organization [facility] Address [phone] [address] [place] [address] Care Team Providers Care Nutrition Representative Name Role Phone Kike Field MD Primary Care Provider Unavaila banner Julio Louie MD Unavailable Encounter Details Date Type Department Care Team (Late st Contact Info) Description 01/08/2018 Procedure Pass [facility] - [place] [address] [facility] [address] [place] [address] Social History Tobacco Use Types Packs/Day Years [...] on filedocumented in this encounter Care Teams Nutrition Representative Relationship Specialty Start Date End Date Kike Field MD PCP - General Internal Medicine 01/08/18 Julio Louie MD [address] [place] [address] [address] [email or web address] Primary Oncologist Medical Oncology 09/11/18 documented as of this encounter Additional Source Comments The information contained in this document represents components of the legal health record. It is not the complete legal health record.[facility]
--- OUTSIDE RECORDS SUMMARY | 2024-12-21 11:22 | XMS_ITS | Clinical Summary ---
Author Organization [facility] [address] [place] [address] [place] [phone] Phone Care Team Providers Care Charger Operator Name Role Phone Omari Robbins MD Primary Care Provider [phone] Surgical History Surgery Date Site/Laterality Comments APPENDECTOMY 1987 PROCEDURE: HISTORICAL APPENDECTOMY MYOMECTOMY 1987 PROCEDURE: TN LAPS MYOMECTOMY EXC 1-4 MYOMAS 250 GM/<; COMMENT: NOT LAPAROSCOPIC SECTION PROCEDURE: TN DELIVERY ONLY; COMMENT: x 2 TONSILLECTOMY AGE [...] (HCC); COMMENT: Right middle lobe lobectomy at [facility], 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 Lung cancer, lower [...] CANCER? Mother PALPITATIONS, A RTHRITIS, HTN, CHOLESTEROL, AL Other Paternal Grandmother Sister Alive BIPOLAR, PHLEBI [...] is recommended in 1 year. Mammo Location: [facility], [address] [place] [address], [id number], . -------- FINAL REPORT -------- Dictated By: Salina Rainey Dictated Date: 09/09/2024 14:04 ET Assigned Physician: Salina Rainey Reviewed and Electronically Signed By: Salina Rainey Signed Date: 09/09/2024 14:08 ET Workstation ID: [id number] Transcribed By: Self Edit Transcribed Date: 09/09/2024 [...] is recommended in 1 year. Mammo Location: [facility], [address] [place] [address], [address], . -------- FINAL REPORT -------- Dictated By: Salina Rainey Dictated Date: 09/09/2024 14:04 ET Assigned Physician: Salina Rainey Reviewed and Electronically Signed By: Salina Rainey Signed Date: 09/09/2024 14:08 ET Workstation ID: [id number] Transcribed By: Self Edit Transcribed Date: 09/09/2024 14:04 ET us Omari Robbins MD IMG BI PROCEDURES Final Result * BD Bone Density DXA Axial Skeleton (09/08/2024 2:34 PM EST) Anatomical Region Laterality Modality Wrist, Hip, L-spine Bone Densito metry 09/08/2024 3:49 PM EST Impressions 09/08/2024 3:52 PM EST Osteoporosis by WHO criteria. The [facility] Department of Internal Medicine recommends using National [...] alternative screening schedule based on juan Trimble., [facility] November 07, 2011 for patients with osteopenia [...] Signed Date: 09/08/2024 15:52 ET Workstation ID: [id number] Transcribed By: Self Edit Transcribed Date: 09/08/2024 [...] deformities. IMPRESSION: Osteoporosis by WHO criteria. The [facility] Department of Internal Medicine recommendsusing National Osteoporosis [...] Signed Date: 09/08/2024 15:52 ET Workstation ID: [id number] Transcribed By: Self Edit Transcribed Date: 09/08/2024 15:49 ET Sonal Cruz METAL POLISHER AND BUFFER APPRENTICE IMG DXA PROCEDURES Fi nal Result from Last 3 Months or Most Recently Relevant to Health Maintenance Insurance [facility] Care Teams Charger Operator Relationship Specialty Start Date End Date Omari Robbins MD [address] [place] [address] PCP - General 05/26/23
--- OUTSIDE RECORDS SUMMARY | 2024-12-21 11:22 | XMS_ITS | Encounter Summary ---
Author Organization [facility] Address [phone] [place] [address] Care Team Providers Care Landscape Architecture Teacher Name Role Phone Kike Field MD Primary Care Provider Julio Temple MD Unavailable [phone] Encounter Details Date Type Department Care Team (Late st Contact Info) Description 08/28/2023 Procedure Pass [facility], Ct Scan - [address] [address] Social History Tobacco Use Types Packs/Day Years [...] on filedocumented in this encounter Care Teams Landscape Architecture Teacher Relationship Specialty Start Date End Date Kike Field MD PCP - General Internal Medicine 01/08/18 Julio Louie MD [address] [place] [address] [address] [email or web address] Primary Oncologist Medical Oncology 09/11/18 documented as of this encounter Additional Source Comments The information contained in this document represents components of the legal health record. It is not the complete legal health record.[facility]
--- OUTSIDE RECORDS SUMMARY | 2024-12-21 11:22 | XMS_ITS | Encounter Summary ---
Author Organization [facility] Address [phone] [address] [place] [address] Care Team Providers Care Staff Air Tactical Officer Name Role Phone Kike Field MD Primary Care Provider Unavaila [facility] Julio Louie MD Unavailable [phone] Encounter Details Date Type Department Care Team (Late st Contact Info) Description 07/27/2020 Procedure Pass [facility] - [place] [address] [facility] [address] [place] [address] Social History Tobacco Use Types Packs/Day Years [...] on filedocumented in this encounter Care Teams Staff Air Tactical Officer Relationship Specialty Start Date End Date Kike Field MD PCP - General Internal Medicine 01/08/18 Julio Louie MD [address] [place] [address] [address] [email or web address] Primary Oncologist Medical Oncology 09/11/18 documented as of this encounter Additional Source Comments The information contained in this document represents components of the legal health record. It is not the complete legal health record.[facility]
--- OUTSIDE RECORDS SUMMARY | 2024-12-21 11:22 | XMS_ITS | Encounter Summary ---
Author Organization [facility] Address [phone] [place] [address] Care Team Providers Care Customer Relations Coordinator Name Role Phone Kike Field MD Primary Care Provider Kike Boone MD Primary Care Provider Unavaila Julio Vidal MD Unavailable [phone] Encounter Details Date Type Department Care Team (Late st Contact Info) Description 07/10/2017 Procedure Pass [facility] - [place] [address] [place] [address] [place] [address] Social History Tobacco Use Types Packs/Day Years [...] on filedocumented in this encounter Care Teams Customer Relations Coordinator Relationship Specialty Start Date End Date Kike Field MD PCP - General Internal Medicine 04/11/17 01/07/18 Kike Field MD PCP - General Internal Medicine 01/08/18 Julio Louie MD [facility] Thoracic Oncology[address] [address] [email or web address] Primary Oncologist Medical Oncology 09/11/18 documented as of this encounter Additional Source Comments The information contained in this document represents components of the legal health record. It is not the complete legal health record.[facility]
--- OUTSIDE RECORDS SUMMARY | 2024-12-21 11:22 | XMS_ITS | Encounter Summary ---
Author Organization [facility] Address [phone] [place] [address] Care Team Providers Care Retoucher Photoengraving Name Role Phone Kike Field MD Primary Care Provider UnavailKike Castle MD Primary Care Provider Unavaila Julio Vidal MD Unavailable Encounter Details Date Type Department Care Team (Late st Contact Info) Description 05/16/2017 Procedure Pass [facility] [address] [place] [address] Social History Tobacco Use Types Packs/Day Years Used Date Smoking Tobacco: Never Assessed Sex and Gender Information Value Date Recorded Sex Assigned at Not on file Gender Identity Not on file Sexual Orientation Not on file documented as of this encounter Plan of Treatment Not on file documented as of this encounter Visit Diagnoses Not on filedocumented in this encounter Care Teams Retoucher Photoengraving Relationship Specialty Start Date End Date Kike Field MD PCP - General Internal Medicine 04/11/17 01/07/18 Kike Field MD PCP - General Internal Medicine 01/08/18 Julio Louie MD [address] [place] [address] [address] [email or web address] Primary Oncologist Medical Oncology 09/11/18 documented as of this encounter Additional Source Comments The information contained in this document represents components of the legal health record. It is not the complete legal health record.[facility]
--- OUTSIDE RECORDS SUMMARY | 2024-12-21 11:22 | XMS_ITS | Encounter Summary ---
Author Organization [facility] Address [phone] [place] [address] Care Team Providers Care Chief Medical Technologist Name Role Phone Kike Field MD Primary Care Provider Unavaila [facility] Julio Louie MD Unavailable [phone] Encounter Details Date Type Department Care Team (Late st Contact Info) Description 08/23/2022 Procedure Pass [facility], Ct Scan - [address] [address] Social History Tobacco Use Types Packs/Day Years [...] on filedocumented in this encounter Care Teams Chief Medical Technologist Relationship Specialty Start Date End Date Kike Field MD PCP - General Internal Medicine 01/08/18 Julio Louie MD [address] [place] [address] [address] [email or web address] Primary Oncologist Medical Oncology 09/11/18 documented as of this encounter Additional Source Comments The information contained in this document represents components of the legal health record. It is not the complete legal health record.[facility]
--- OUTSIDE RECORDS SUMMARY | 2024-12-21 11:22 | XMS_ITS | Encounter Summary ---
Author Organization [facility] Address [phone] [address] [place] [address] Care Team Providers Care Crystal Lapper Name Role Phone Kike Field MD Primary Care Provider Unavaila [facility] Julio Louie MD Unavailable Encounter Details Date Type Department Care Team (Late st Contact Info) Description 06/27/2020 Procedure Pass [facility] - [place] [address] [facility] [address] [place] [address] Social History Tobacco Use Types Packs/Day Years [...] on filedocumented in this encounter Care Teams Crystal Lapper Relationship Specialty Start Date End Date Kike Field MD PCP - General Internal Medicine 01/08/18 Julio Louie MD [address] [place] [address] [address] [email or web address] Primary Oncologist Medical Oncology 09/11/18 documented as of this encounter Additional Source Comments The information contained in this document represents components of the legal health record. It is not the complete legal health record.[facility]
--- OUTSIDE RECORDS SUMMARY | 2024-12-21 11:22 | XMS_ITS | Encounter Summary ---
Author Organization [facility] Address [phone] [place] [address] Care Team Providers Care Peanut Cleaner Name Role Phone Kike Field MD Primary Care Provider Kike Boone MD Primary Care Provider Unavaila Julio Vidal MD Unavailable [phone] Encounter Details Date Type Department Care Team (Late st Contact Info) Description 06/24/2017 Procedure Pass [facility] PERIOPERATIVE DEPT [address] [place] [address] Social History Tobacco Use Types Packs/Day Years [...] on filedocumented in this encounter Care Teams Peanut Cleaner Relationship Specialty Start Date End Date Kike Field MD PCP - General Internal Medicine 04/11/17 01/07/18 Kike Field MD PCP - General Internal Medicine 01/08/18 Julio Louie MD 10 [facility] Thoracic Oncology[address] [address] [email or web address] Primary Oncologist Medical Oncology 09/11/18 documented as of this encounter Additional Source Comments The information contained in this document represents components of the legal health record. It is not the complete legal health record.[facility]
== END 2024-12-21 10:46 | disposition home or self-care (01) ==
PROVIDERS: PCP Internal Medicine; Visit Provider Student in an Organized Health Care Education/Training Program
DX: M05.79 Rheumatoid arthritis with rheumatoid factor of multiple sites without organ or systems involvement (principal); M81.0 Age-related osteoporosis without current pathological fracture; Z79.899 Other long term (current) drug therapy; Z51.81 Encounter for therapeutic drug level monitoring; Z79.631 Long term (current) use of antimetabolite agent
CPT/HCPCS: 99214; G2211

== ENCOUNTER → 2024-12-21 09:50 | Outpatient (BNVA) | payer MEDICARE, SELFPAY | PROVIDERS: PCP Internal Medicine; Visit Provider Student in an Organized Health Care Education/Training Program | DX: M05.9 Rheumatoid arthritis with rheumatoid factor, unspecified (principal); M81.0 Age-related osteoporosis without current pathological fracture; Z79.899 Other long term (current) drug therapy; Z51.81 Encounter for therapeutic drug level monitoring; Z79.631 Long term (current) use of antimetabolite agent | CPT/HCPCS: 99212 ==

== ENCOUNTER 2025-06-30 09:28 | Outpatient (REF) | payer MEDICARE, SELFPAY ==
[2025-06-30 13:11] LABS: MANUAL DIFF FLAG NO
[2025-06-30 13:24] LABS: Hematocrit 36.7 % (37.0-47.0); Hemoglobin 12.4 g/dl (12.0-16.0); Imm Gran Abs Auto 0.01 X10*3/uL (0.00-0.03); Imm Gran Pct Auto 0.2 % (0.0-0.4); Lymphocytes Absolute Auto 1.5 X10*3/uL (1.2-4.9); Mean Corpuscular HGB Conc 33.8 g/dl (31.0-35.0); Mean Corpuscular Hemoglobin 32.0 pg (27.0-33.0); Mean Corpuscular Volume 94.6 fL (80.0-98.0); NRBC Abs Auto 0.000 X10*3/uL (0.0-0.012); NRBC Pct Auto 0.0 /100WBC (0.0-0.2); Platelet Count 325 X10*3/uL (160-400); Red Blood Count 3.88 X10*6/uL (4.20-5.50); White Blood Count 6.1 X10*3/uL (4.8-10.8)
[2025-06-30 13:46] LABS: Alanine Aminotransferase 24 U/L (0-31); Albumin Level 4.8 g/dL (3.5-5.0); Alkaline Phosphatase 52 U/L (39-117); Anion Gap 14 (12-20); Aspartate Amino Transferase 29 U/L (5-31); Blood Urea Nitrogen 18 mg/dL (9-16); Calcium 9.7 mg/dL (8.4-10.2); Carbon Dioxide 29 mmol/L (22-29); Chloride 103 mmol/L (96-108); Estimated Glomerular Filt Rate > 60; Potassium 4.8 mmol/L (3.3-5.1); Sodium 141 mmol/L (135-145); Total Protein 7.6 g/dL (6.5-8.0)
[2025-07-01 08:26] LABS: HBS Num1 19.61 mIU/mL (0-7.99); HBc Num1 0.05 S/CO (0.00-0.79); HBsAGNum1 0.43 S/CO (0.00-0.99); Hepatitis A Antibody IgM 0.25 Index (0-0.79); Hepatitis B Surface Antigen Negative (Negative); ~HepC Num1 0.07 S/CO (0.00-0.79); ~Hepatitis A Antibody IgM Nonreactive (Nonreactive); ~Hepatitis B Surface Antibody REACTIVE (Nonreactive); ~Hepatitis C Antibody Nonreactive (Nonreactive)
[2025-07-03 20:03] LABS: TS Negative Control Passed; TS Panel A 0; TS Panel B 1; TS Positive Control Passed; TSpotTB Negative (Negative)
== END 2025-06-30 09:29 | disposition home or self-care (01) ==
LOC: HO.HKASLDS 09:28
PROVIDERS: PCP Internal Medicine; Visit Provider Student in an Organized Health Care Education/Training Program
DX: Z51.81 Encounter for therapeutic drug level monitoring (principal); M05.9 Rheumatoid arthritis with rheumatoid factor, unspecified; M17.0 Bilateral primary osteoarthritis of knee; M81.0 Age-related osteoporosis without current pathological fracture; E55.9 Vitamin D deficiency, unspecified; Z11.1 Encounter for screening for respiratory tuberculosis; Z79.631 Long term (current) use of antimetabolite agent; Z79.899 Other long term (current) drug therapy
CPT/HCPCS: 20610; 36415; 80053; 82306; 85025; 85652; 86140; 86481; 86704; 86706; 86709; 86803; 87340; 99212; J2003; J3301

== ENCOUNTER 2025-06-30 09:28 | Outpatient (AMB) | payer MEDICARE, SELFPAY ==
--- NOTE | 2025-06-30 09:35 | A.OFFVIS_ITS ---
Vital Signs 06/30/25 09:42 Height 5 ft 2 in Weight 123 lb 10.869 oz BMI 22.6 BP 134/80 Blood Pressure Location Rt brachial Position Sitting Pulse 77 Pulse Source Pulse Oximeter Pulse Oximetry (%) 98 Oxygen Delivery Method Room Air Intake Visit Reasons: RA Intake Note: Patient presents for RA. Allergies bee venom protein (honey bee) Allergy (Severe, Verified 06/30/25 09:42) Anaphylaxis Medication List - Last Reconciled 06/30/25 by Rebecca Crowell MD amlodipine-benazepril 5-10 mg 1 cap PO DAILY atorvastatin 20 mg PO DAILY betamethasone, augmented 0.05 % 1 appl topical BID bupropion HCl SR 150 mg PO BID cholecalciferol (vitamin D3) 50 mcg PO DAILY cyclobenzaprine 5 mg PO BEDTIME diclofenac sodium 1% 2 grams topical BID epinephrine 0.3 mg IM Q4H PRN fluticasone propionate 50 mcg/actuation (Allergy Relief (fluticasone)) 2 sprays intranasal DAILY PRN hydroxychloroquine (Plaquenil) 200 mg PO DAILY leucovorin calcium 5 mg PO QWEEK 90 days methotrexate sodium 7.5 mg (3 x 2.5 mg) PO QWEEK 90 days crvyktbz-ugq-XS-lycopen-lutein 0.4 mg-300 mcg- 250 mcg (Centrum Silver) 1 tab PO DAILY nabumetone 500 mg PO BID PRN omega 6-dvu-vxn-fish oil 1,200 (144-216) mg (Fish Oil) 2 caps PO DAILY sulfacetamide sodium 10% 1 drp ophthalmic-Left Q1H HPI Comments Details: Patient is a 69-year-old female with history of lung cancer currently in remission after right middle lobectomy, hyperlipidemia, hypertension, osteoporosis, polyarticular osteoarthritis and seropositive erosive (feet, 2008) rheumatoid arthritis here today for follow up Interval History: Patient last seen 12/21/2024 with me - On alendronate 70mg weekly, methotrexate 7.5mg weekly, hydroxychloroquine 200mg every other day and leucovorin 5mg weekly. - Patient states that she tried to decrease her Plaquenil to every other day for 1 month however after the month she noticed more episodes of stiffness and pain involving her bilateral hands. And so she went back to daily Plaquenil. - No fractures or falls - Currently goes to a senior center twice a week and does weight exercises and balancing exercises Today - On methotrexate 7.5mg weekly, hydroxychloroquine 200mg daily and leucovorin 5mg weekly - Stopped alendronate - Doing well overall - Complaining of bilateral knee pain, especially when walking up and down the stairs as well as bending Rheumatologic History: Seropositive erosive rheumatoid arthritis Onset 10/2007: mostly hands and feet; RF, CCP positive; HCQ started 09/26 Erosions seen in feet, 02/25; MTX added 04/27 Osteoporosis On alendronate 2004 - 09/28 T scores: hip -1.4, LS spine -2.7. 10/01 T scores hip -2.8; LS spine -2.8. 04/07 T scores: hip -2.9; LS spine -3.2 Alendronate restarted 03/2019 - 12/2024 DEXA: LS spine -2.6; Hip -2.8 Current Rheumatology Medication(s): Hydroxychloroquine 200 mg every other day Methotrexate 7.5 mg weekly Leucovorin 5 mg weekly [facility] Medical History (Updated 06/30/25 @ 16:37 by Rebecca Crowell MD) Osteoarthritis of hands, bilateral Cholelithiasis Hyperlipidemia Hypertension History of lung cancer Osteoporosis Seropositive rheumatoid arthritis Surgical History History of cataract surgery S/P lobectomy of lung Social History Household Members: Spouse Housing: House Are you a primary companion caregiver to a significant other at home: No Do you presently have visiting nurse or other home services: No 75 years or older and lives alone: No Alcohol intake: current Alcohol intake frequency: a few times a week Alcohol type: beer and hard liquor Patient Tobacco Use Status: Former Tobacco user Years Smoked: quit 5 years ago e-Cigarette/Vaping Use: Never Used service: No Current occupational status: retired Review of Systems Const Details: Review of Systems Constitutional: Denies fever, chills, weight loss ENT: Denies vision changes, eye pain or eye redness, dental caries, dry mouth GI: Denies nausea, vomiting, diarrhea, abdominal pain, change in BM Pulm: Denies SOB, AMAYA, hemoptysis, wheezing Cards: Denies chest pain, palpitations Skin: Denies Raynaud's, rash, nail changes, photosensitivity, BOWLING FLOOR DESK CLERK: Denies headaches, weakness, paresthesias, recurrent falls MSK: as per HPI All other systems reviewed and are unremarkable except noted above Physical Exam Exam Exam: Vital signs reviewed Physical Examination CONSTITUITIONAL Patient alert and cooperative. Well appearing and in no apparent painful distress MSK Hands * Right Hand: Able to make a fist. Mild ulnar deviation of the 2nd digit at the level of the PIP. There was mild fusiform swelling to the 2nd digit. No tenderness to palpation of the MCPs, PIPs or DIPs * Left Hand: Able to make a fist. No swelling or tenderness to palpation of the MCPs, PIPs or DIPs. * Herbedens nodes noted bilaterally Wrists * Right Wrist: Full ROM to flexion and extension. No swelling or TTP * Left Wrist: Full ROM to flexion and extension. No swelling or TTP Elbows * Right Elbow: Full ROM. No swelling or TTP. No TTP of the medial epicondyle. No TTP of the lateral epicondyle * Left Elbow: Full ROM. No swelling or TTP. No TTP of the medial epicondyle. No TTP of the lateral epicondyle Shoulders * Right shoulder: Full ROM. No swelling noted. No TTP of the AC joint. No TTP of the subacromial bursa. No TTP of the posterior shoulder * Left shoulder: Full ROM. No swelling noted. No TTP of the AC joint. No TTP of the subacromial bursa. No TTP of the posterior shoulder Knees * Right knee: Full ROM. No swelling noted. TTP of the knee joint line. No TTP of pes anserine bursa * Left knee: Full ROM. No swelling noted. TTP of the knee joint line. No TTP of pes anserine bursa. * Crepitations felt bilaterally Ankles * Right ankle: Good ankle dorsiflexion and plantar flexion. No swelling. No TTP of the ankle joint * Left ankle: Good ankle dorsiflexion and plantar flexion. No swelling. No TTP of the ankle joint Feet * Right foot: Negative squeeze test * Left foot: Negative squeeze test Tender points? * No tenderness to palpation of the bilateral trapezius, supraspinatus, anterior costochondral junctions, bilateral suboccipital muscle insertions SKIN No rashes Vital Signs: Last Vital Signs Pulse 77 09/11/25 09:42 BP 134/80 06/30/25 09:42 Pulse Ox 98 06/30/25 09:42 Oxygen Delivery Method Room Air 06/30/25 09:42 BMI result Body Mass Index 22.6 Office Procedures AMB Joint Injection/Aspiration Joint Injection/Aspiration Details: Procedure was explained to the patient and informed consent was obtained. ? Risks associated with the procedure were discussed with the patient including but not limited to bleeding, infection, drug reactions and reactions to the topical anesthetic. Patient made aware of signs to look out for infectious complications. The area of interest was identified and confirmed with patient. ?This was subsequently cleaned with chlorhexidine x 2. ? The area was then anesthetized using ethyl chloride spray. 40 mg Kenalog with 1 cc 1% lidocaine was injected without issue. ?Minimal to no bleeding. ?Patient tolerated procedure. Primary Site: right knee Prep: site was prepped using aseptic technique and ethochloride spray was applied Injected: 40 mg of, Kenalog, with 1 mL of, 1% plain lidocaine and in the joint Procedure: The patient tolerated the procedure well Coding 90873 - Large joint Procedure code (CPT) selection complete AMB Joint Injection/Aspiration Joint Injection/Aspiration Details: Procedure was explained to the patient and informed consent was obtained. ? Risks associated with the procedure were discussed with the patient including but not limited to bleeding, infection, drug reactions and reactions to the topical anesthetic. Patient made aware of signs to look out for infectious complications. The area of interest was identified and confirmed with patient. ?This was subsequently cleaned with chlorhexidine x 2. ? The area was then anesthetized using ethyl chloride spray. 40 mg Kenalog with 1 cc 1% lidocaine was injected without issue. ?Minimal to no bleeding. ?Patient tolerated procedure. Primary Site: left knee Prep: site was prepped using aseptic technique and ethochloride spray was applied Injected: 40 mg of, Kenalog, with 1 mL of, 1% plain lidocaine and in the joint Procedure: The patient tolerated the procedure well Coding 92261 - Large joint Procedure code (CPT) selection complete Office Meds lidocaine (PF) 10 mg/mL (1 %) injection solution Performing Provider: Rebecca Crowell MD Performing Location: [facility] Rheumatology-[facility] Administered by: Muna Beasley RN on 06/30/25 11:25 Dose Route Admin Location Dispensed Lot Number Expiration Date [employer] Corporate Quality Manager 1 mL Infiltration right knee 2 mL [id number] 01/17/27 25012-188-83 [employer] Total Dispensed Waste 2 mL 50 % Kenalog 40 mg/mL suspension for injection Performing Provider: Rebecca Crowell MD Performing Location: [facility] Rheumatology[place] Administered by: Muna Beasley RN on 06/30/25 11:25 Dose Route Admin Location Dispensed Lot Number Expiration Date [facility] Corporate Quality Manager 40 mg intra-articular right knee 1 mL [id number] 02/16/26 [address]- 1 [employer] Total Dispensed Waste 1 mL 0 % lidocaine (PF) 10 mg/mL (1 %) injection solution Performing Provider: Rebecca Crowell MD Performing Location: [facility] Rheumatology[place] Administered by: Muna Beasley RN on 06/30/25 11:25 Dose Route Admin Location Dispensed Lot Number Expiration Date [facility] Corporate Quality Manager 1 mL Infiltration left knee 2 mL [id number] 01/17/27 35708-004-94 [employer] Total Dispensed Waste 2 mL 50 % Kenalog 40 mg/mL suspension for injection Performing Provider: Rebecca Crowell MD Performing Location: [facility] Rheumatology[place] Administered by: Muna Beasley RN on 06/30/25 11:25 Dose Route Admin Location Dispensed Lot Number Expiration Date [facility] Corporate Quality Manager 40 mg intra-articular left knee 1 mL [id number] 02/16/26 [address]-4 [employer] Total Dispensed Waste 1 mL 0 % Results Reviewed Results Reviewed: Laboratory Tests 06/30/25 10:40 WBC 6.1 RBC 3.88 L Hgb 12.4 Hct 36.7 L Plt Count 325 ESR 8 Sodium 141 Potassium 4.8 Chloride 103 Carbon Dioxide 29 BUN 18 H Creatinine 0.87 AST 29 ALT 24 C-Reactive Protein 0.15 25-OH Vitamin D Total 89.9 DEXA 08/2024 L Spine: -2.4 L Hip: -2.8 DEXA 04/2021 L Spine: -2.6 L Hip: -2.8 Assessment & Plan Assessment & Plan (1) Seropositive rheumatoid arthritis: Comment: Onset 10/27: mostly hands and feet; RF, CCP positive; HCQ started 09/26 - eye exam 04/29, 12/01, 12/02, 12/31, 07/03, 12/31, 01/01, 08/03. 08/04, 03/05, 09/05, 10/06. 06/07, 11/2019, 05/2020, 03/2021, 03/2022, 10/2022 Erosions seen in feet, 02/25; MTX added 04/27 Code(s): M05.9 - Rheumatoid arthritis with rheumatoid factor, unspecified Category: Medical Plan: #Seropositive erosive rheumatoid arthritis Patient is a 69-year-old female with seropositive erosive rheumatoid arthritis. Based on her examination she is currently in low disease activity. Plan - Methotrexate 7.5mg weekly - Leucovorin 5mg weekly - Hydroxychlorquine 200mg daily - RTC 6 months - Labs before visit: CBC, CMP, ESR, CRP (2) Osteoporosis: Comment: 09/28 DEXA: hip -1.4, LS spine -2.7. 10/01 DEXA: hip -2.8; LS spine -2.8. Alendronate 2004 - 04/07 DEXA: hip -2.9; LS spine -3.2 Alendronate restarted 05/09 DEXA: LS spine -2.6; Hip -2.8 09/12 DEXA: L Spine: -2.4; L Hip: -2.8 Code(s): M81.0 - Age-related osteoporosis without current pathological fracture Category: Medical Qualifiers: Osteoporosis type: age-related Presence of current pathological fracture: without current pathological fracture Qualified Code(s): M81.0 - Age-related osteoporosis without current pathological fracture Plan: #Osteoporosis Patient with age-related osteoporosis without current pathological fracture. Currently doing weight-bearing exercises and is on vitamin-D supplementation. Currently on drug holiday Plan - Next DEXA scan 2025 - Vitamin D supplementation (3) Bilateral primary osteoarthritis of knee: Code(s): M17.0 - Bilateral primary osteoarthritis of knee Plan: #Bilateral Knee OA Patient with bilateral knee OA S/p steroid injections Will update Knee XRs as well (4) Long-term use of hydroxychloroquine: Comment: eye exam 04/29, 12/01, 12/02, 12/31, 07/03, 12/31, 01/01, 08/03. 08/04, 03/05, 09/05, 10/06. 06/07, 11/2019, 05/2020, 03/2021, 03/2022, 10/2022, 11/2023 Code(s): Z79.899 - Other custodial (current) drug therapy Category: Medical Plan: #Long-term Use of Hydroxychloroquine Discussed with patient the risks and benefits of hydroxychloroquine in managing the rheumatic condition Benefits include: - Reduced pain, reduce mortality, maintenance of remission and reduction of flares Risks include: - GI upset, skin hyperpigmentation, retinal toxicity (especially after more than 5 years of use), myopathy Advised yearly ophthalmology visits Last ophthalmology visit: 01/2025 (5) Encounter for monitoring of methotrexate therapy: Code(s): Z51.81 - Encounter for therapeutic drug level monitoring; Z79.631 - intermodal owner operator truck driver (current) use of antimetabolite agent Plan: #Long-term Current Use of Methotrexate Discussed with patient the benefits and risks of methotrexate for managing their rheumatic condition Benefits include reduced pain, reduced mortality, maintenance of remission and reduction of flares Risks include oral ulcers, photosensitivity, hepatotoxicity, hematologic toxicity, pneumonitis, flu-like symptoms (especially day after administration), nodulosis, lymphomas ? Limit alcohol and avoid Bactrim ? Monitoring: ?CBC, BMP, LFTs every 3-4 months and hepatitis serologies as needed Plan I spent 30 minutes reviewing the record and labs, taking a history, examining the patient, discussing the treatment plan and documenting in the medical record Orders: Orders XR knee RT 3V Today M17.0 - Bilateral primary osteoarthritis of knee AMB Joint Injection/Aspiration Today M17.0 - Bilateral primary osteoarthritis of knee XR knee LT 3V Today M17.0 - Bilateral primary osteoarthritis of knee AMB Joint Injection/Aspiration Today M17.0 - Bilateral primary osteoarthritis of knee Medications: Changed From leucovorin calcium Take the day after after you take methotrexate 5 mg PO QWEEK 5 tabs 5RF M05.9 - Rheumatoid arthritis with rheumatoid factor, unspecified To leucovorin calcium Take the day after after you take methotrexate 5 mg PO QWEEK 13 tabs 1RF 90 days M05.9 - Rheumatoid arthritis with rheumatoid factor, unspecified Refilled hydroxychloroquine (Plaquenil) 200 mg PO DAILY 90 tabs 1RF M05.9 - Rheumatoid arthritis with rheumatoid factor, unspecified methotrexate sodium 7.5 mg (3 x 2.5 mg) PO QWEEK 39 tabs 1RF 90 days M05.9 - Rheumatoid arthritis with rheumatoid factor, unspecified Discontinued alendronate Take 1 tab once weekly, 1st thing in the morning, on an empty stomach, with a large glass of water (at least 6 oz) and stay upright for 30 minutes Discontinued Reason: Doctor's Order 70 mg PO QWEEK 4 tabs 5RF M81.0 - Age- related osteoporosis without current pathological fracture Coding Level of Care Code Est Pt Level 4 (29679) Complex EM visit Add On G2211 Diagnoses Seropositive rheumatoid arthritis M05.9 Age-related osteoporosis without current pathological fracture M81.0 Osteoporosis type: age-related Presence of current pathological fracture: without current pathological fracture Bilateral primary osteoarthritis of knee M17.0 Long-term use of hydroxychloroquine Z79.899 Encounter for monitoring of methotrexate therapy Z51.81; Z79.631 CPT Codes Coding - 46516 Large joint: 76685 - Large joint ([id number]) Coding - 79289 Large joint: 54127 - Large joint ([id number])
[2025-06-30 09:42] VITALS: BP 134/80; PULSE 77; O2SAT 98; BMI 22.6
--- OUTSIDE RECORDS SUMMARY | 2025-06-30 10:59 | XMS_ITS | Encounter Summary ---
Author Organization [facility] Address [address] [place] [address] Phone Care Team Providers Care Machine Room Operator Name Role Phone Kike Field MD Primary Care Provider Julio Temple MD Unavailable [phone] Encounter Details Date Type Department Care Team (Late st Contact Info) Description 07/27/2020 Procedure Pass [facility] - [place] [address] [facility], [address]th [place] [address] Social History Tobacco Use Types Packs/Day Years Used Date Smoking Tobacco: Former Cigarettes 0.8 46 0 05/17/1971 - 05/17/2017 Smokeless Tobacco: Never Alcohol Use Standard Drinks/Week Comments Yes 0 (1 standard drink = 0.6 oz pur e alcohol) Comments Unknown Sex and Gender Information Value Date Recorded Sex Assigned at Not on file Legal Sex Female 2:01 PM EDT Gender Identity Not on file Sexual Orientation Not on file documented as of this encounter Plan of Treatment Upcoming Encounters Date Type Department Care Team (Late st Contact Info) Description 08/27/2024 Procedure Pass [facility], Ct Scan - [facility] [address] [place] [address] 08/23/2025 12:00 PM EST Appointment [facility], Ct Scan - [address] [address] Julio Louie MD [address] [place] [address] [address] [email or web address] 09/01/2025 2:00 PM EST Telemedicine [facility] Center for Thoracic Oncology [address] [facility], [address]th [address], [address] [place] [address] Julio Louie MD [address] [place] [id number] [email or web address] documented as of this encounter Visit Diagnoses Not on filedocumented in this encounter Care Teams Machine Room Operator Relationship Specialty Start Date End Date Kike Field MD PCP - General Internal Medicine 01/08/18 Julio Louie MD [address] [place] [id number] [email or web address] Primary Oncologist Medical Oncology 09/11/18 documented as of this encounter Additional Source Comments The information contained in this document represents components of the legal health record. It is not the complete legal health record.[facility]
--- OUTSIDE RECORDS SUMMARY | 2025-06-30 10:59 | XMS_ITS | Encounter Summary ---
Author Organization [facility] Address [address] [facility] [address] [address] [place] [address] Phone Care Team Providers Care Unitizer Name Role Phone Kike Field MD Primary Care Provider Julio Temple MD Unavailable [phone] Encounter Details Date Type Department Care Team (Late st Contact Info) Description 07/26/2021 Procedure Pass [facility] [place] [address] [facility], 6th [place] [address] Social History Tobacco Use Types Packs/Day Years [...] st Contact Info) Description 08/27/2024 Procedure Pass [facility], Ct Scan - [facility] [address] [place] [address] 08/23/2025 12:00 PM EST Appointment [facility], Ct Scan - [address] [address] Julio Louie MD [address] [place] [address] [address] [email or web address] 09/01/2025 2:00 PM EST Telemedicine [facility] Center for Thoracic Oncology [address] [facility], [address], [address] [place] [address] Julio Louie MD [address] [place] [address] [email or web address] documented as of this encounter Visit Diagnoses Not on filedocumented in this encounter Care Teams Unitizer Relationship Specialty Start Date End Date Kike Field MD PCP - General Internal Medicine 01/08/18 Julio Louie MD [address] [place] [address] [email or web address] Primary Oncologist Medical Oncology 09/11/18 documented as of this encounter Additional Source Comments The information contained in this document represents components of the legal health record. It is not the complete legal health record.[facility]
--- OUTSIDE RECORDS SUMMARY | 2025-06-30 10:59 | XMS_ITS | Clinical Summary ---
Author Organization [facility] Address [address] [place] [address] Phone Care Team Providers Care Cash Person Name Role Phone Kike Field MD Primary Care Provider Kara Julio Vidal MD Unavailable [phone] Allergies Active Allergy Reactions Criticality Noted Date Comments Bee Sting Kit Anaphylaxis High 06/16/2017 Medications atorvastatin (LIPITOR) 20 MG tablet Take 20 mg by mouth Daily before dinner. Active hydroxychloroqui ne (PLAQUENIL) 200 mg tablet Take by mouth [...] mg into the muscle as needed for anaphylaxis . Active Active Problems Problem Noted Date Diagnosed Date Primary lung cancer 06/24/2017 Assessment & Plan (09/02/2024 5:43 AM EST): Mrs. 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 Repeat scans, which we personally reviewed with [facility] radiology today, show no evidence of disease. [...] Repeat scans, which we personally reviewed with [facility] radiology today, show no evidence of disease. [...] Repeat scans, which we personally reviewed with [facility] radiology today, show no evidence of disease. [...] Repeat scans, which we personally reviewed with [facility] radiology today, show no evidence of disease. [...] Repeat scans, which I personally reviewed with [facility] radiology today, show no evidence of disease. [...] Repeat scans, which I personally reviewed with [facility] radiology today, show no evidence of disease. [...] Repeat scans, which I personally reviewed with [facility] radiology today, show no evidence of disease. [...] Repeat scans, which I personally reviewed with [facility] radiology today, show no evidence of disease. [...] Repeat scans, which I personally reviewed with [facility] radiology today, show no evidence of disease. [...] with a working camera? Not on file Comments Unknown Sex and Gender Information Value Date Recorded Sex Assigned at Not on file Legal Sex Female 2:01 PM EDT Gender Identity Not on file Sexual Orientation Not on file Last Filed Vital Signs Vital Sign Reading Time Taken Comments Blood Pressure 143/73 08/22/2022 1:44 PM EDT Pulse 74 08/22/2022 1:44 PM EDT Temperature 37.1 C (98.7 F) 08/22/2022 1:44 PM EDT Respiratory Rate 16 08/22/2022 1:44 PM EDT Oxygen Saturation 100% 08/22/2022 1:44 PM EDT Inhaled Oxygen Concentration - - Weight 60.3 kg (132 lb 14.4 oz) 08/22/2022 1:44 PM EDT Height 157.5 cm (5' 2 ) 06/24/2017 10:1 7 AM EDT Body Mass Index 24.31 06/24/2017 10:17 AM EDT Plan of Treatment Upcoming Encounters Date Type Department Care Team (Late st Contact Info) Description 08/27/2024 Procedure Pass [address] [address] 08/23/2025 12:00 PM EST Appointment [address] [address] Julio Louie MD [address] [place] [address] [address] [email or web address] 09/01/2025 2:00 PM EST Telemedicine [facility] Center for Thoracic Oncology [address], 7th [address], [address] [place] [address] Julio Louie MD [address] [facility] [place] [address] [email or web address] Health Maintenance Due Date Last Done Comments LIPID PANEL 1953 DEPRESSION SCREENING 1965 SMOKING Hx and SMOKELESS TOBACCO SCREENING 1966 HEPATITIS C SCREENING 1971 MAMMOGRAM 1993 COLOGUARD 1998 COLONOSCOPY 1998 COLORECTAL CANCER SCREENING 1998 FIT TEST 1998 FOBT 1998 SIGMOIDOSCOPY 1998 VIRTUAL COLONOSCOPY 1998 OSTEOPOROSIS SCREENING INITIAL (ONE-TIME) 2018 INFLUENZA VACCINE (#1) 2025 , 06/28/2023, 2022, Additional history exists COVID-19 VACCINE ( season) 2025 08/02/2024, 07/14/2023, 02/10/2023, Additional history exists Adult Td,Tdap Booster 07/25/2032 07/25/2022 , 04/25/2011, 09/05/2000 ZOSTER VACCINES Completed 12/28/2019, 09/19, 07/14/2013 RSV VACCINE Completed 07/24/2023 PNEUMOCOCCAL VACCINES (50+ years) Completed 12/23/2023, 08/26/2019, 2019, Additional history exists HEPATITIS A VACCINES Aged Out No long er eligible based on patient's age to complete this topic HIB VACCINES Aged Out No longer eligi ble based on patient's age to complete this topic MENINGOCOCCAL VACCINES (ACWY) Aged Out No longer eligible based on patient's age to complete this topic MENINGOCOCCAL VACCINES (B) Aged Out N o longer eligible based on patient's age to complete this topic Medical Devices Not on file Insurance MEDICARE PART A & B [employer] SUPPLEMENT MEDICARE PART A & B [employer] MEDEX SUPPLEMENT MEDICARE PART A & B [employer] SUPPLEMENT MEDICARE PART A & B [employer] SUPPLEMENT MEDICARE PART A & B [employer] SUPPLEMENT MEDICARE PART A & B [employer] MED[employer] SUPPLEMENT MEDICARE PART A & B [employer] SUPPLEMENT MEDICARE PART A & B [employer] MED[employer] SUPPLEMENT MEDICARE PART A & B [employer] MED[employer] SUPPLEMENT Advance Directives For more information, please contact: [phone] (9AM - 5PM [place], Friday-Friday) Documents on File Type Date Recorded Patient Hospital Admitting Clerk Expl anation Healthcare Proxy 07/02/2017 1:48 PM * Full Code (Presumed) (Latest Code Status on File) Date Activated Date Inactivated Comments 06/24/2017 4:18 PM 06/27/2017 1:07 PM Care Teams Cash Person Relationship Specialty Start Date End Date Kike Field MD PCP - General Internal Medicine 01/08/18 Julio Louie MD [address] [place] [address] [address] [address] [email or web address] Primary Oncologist Medical Oncology 09/11/18 Additional Source Comments The information contained in this document represents components of the legal health record. It is not the complete legal health record.[facility]
--- OUTSIDE RECORDS SUMMARY | 2025-06-30 10:59 | XMS_ITS ---
Author Name [facility] Organization Unknown Care Team Organization Name Specialty Phone Email Start Date End [facility] Termed, PROVIDER Primary Care 08/27/202205/20
--- OUTSIDE RECORDS SUMMARY | 2025-06-30 10:59 | XMS_ITS | Encounter Summary ---
Author Organization [facility] Address [address] [address] [facility] [address] [place] [address] Phone Care Team Providers Care Preparation Plant Repairer Name Role Phone Kike Field MD Primary Care Provider Julio Temple MD Unavailable [phone] Encounter Details Date Type Department Care Team (Late st Contact Info) Description 06/27/2020 Procedure Pass [facility] - [place] [address] [facility], 6th [place] [address] Social History Tobacco Use Types Packs/Day Years [...] st Contact Info) Description 08/27/2024 Procedure Pass [facility], Ct Scan - [facility] [address] [place] [address] 08/23/2025 12:00 PM EST Appointment [facility], Ct Scan - [address] [address] Julio Louie MD [address] [place] [address] [address] TATE@[email or web address] 09/01/2025 2:00 PM EST Telemedicine [facility] Center for Thoracic Oncology [address] [facility], 7th Floor, [address] [place] [address] Julio Louie MD [address] [place] [address] TATE@[email or web address] documented as of this encounter Visit Diagnoses Not on filedocumented in this encounter Care Teams Preparation Plant Repairer Relationship Specialty Start Date End Date Kike Field MD PCP - General Internal Medicine 01/08/18 Julio Louie MD [address] [place] [phone] [email or web address] Primary Oncologist Medical Oncology 09/11/18 documented as of this encounter Additional Source Comments The information contained in this document represents components of the legal health record. It is not the complete legal health record.[facility]
--- OUTSIDE RECORDS SUMMARY | 2025-06-30 10:59 | XMS_ITS | Encounter Summary ---
Author Organization [facility] Address [address] [place] [address] Phone Care Team Providers Care Comic Book Writer Name Role Phone Kike Field MD Primary Care Provider Julio Temple MD Unavailable [phone] Encounter Details Date Type Department Care Team (Late st Contact Info) Description 08/23/[address] [address] Social History Tobacco Use Types Packs/Day Years [...] (Late st Contact Info) Description 08/27/[address] [address] 08/23/2025 12:00 PM EST Appointment [facility], Ct Scan - [address] [address] Julio Louie MD [address] [place] [address] [address] TATE@[email or web address] 09/01/2025 2:00 PM EST Telemedicine [facility] [address] [facility], 7th Floor, [address] [place] [address] Julio Louie MD [address] [place] [address] [address] TATE@[facility] documented as of this encounter Visit Diagnoses Not on filedocumented in this encounter Care Teams Comic Book Writer Relationship Specialty Start Date End Date Kike Field MD PCP - General Internal Medicine 01/08/18 Julio Louie MD [address] [place] [phone] [email or web address] Primary Oncologist Medical Oncology 09/11/18 documented as of this encounter Additional Source Comments The information contained in this document represents components of the legal health record. It is not the complete legal health record.[facility]
--- OUTSIDE RECORDS SUMMARY | 2025-06-30 10:59 | XMS_ITS | Encounter Summary ---
Author Organization [facility] Address [address] [facility] [address] [place] [address] Phone Care Team Providers Care Flour Worker Name Role Phone Kike Field MD Primary Care Provider UnavailKike Catsle MD Primary Care Provider Julio Temple MD Unavailable [phone] Encounter Details Date Type Department Care Team (Late st Contact Info) Description 05/16/2017 Procedure Pass [facility] [address] [place] [address] Social History Tobacco Use Types Packs/Day Years Used Date Smoking Tobacco: Never Assessed Comments Unknown Sex and Gender Information Value Date Recorded Sex Assigned at Not on file Legal Sex Female 2:01 PM EDT Gender Identity Not on file Sexual Orientation Not on file documented as of this encounter Plan of Treatment Upcoming Encounters Date Type Department Care Team (Late st Contact Info) Description 08/27/2024 Procedure Pass [facility] [address] [place] [address] 08/23/2025 12:00 PM EST Appointment [facility] [address] [place] [address] Julio Louie MD [address] [place] [address] [address] TATE@[email or web address] 09/01/2025 2:00 PM EST Telemedicine [facility] Center for Thoracic Oncology [address] [place] [address], 7th Floor, [address] [place] [address] Julio Louie MD [address] [place] [address] [address] TATE@[email or web address] documented as of this encounter Visit Diagnoses Not on filedocumented in this encounter Care Teams Flour Worker Relationship Specialty Start Date End Date Kike Field MD PCP - General Internal Medicine 04/11/17 01/07/18 Kike Field MD PCP - General Internal Medicine 01/08/18 Julio Louie MD [address] [place] [phone] TATE@[email or web address] Primary Oncologist Medical Oncology 09/11/18 documented as of this encounter Additional Source Comments The information contained in this document represents components of the legal health record. It is not the complete legal health record.[facility]
--- OUTSIDE RECORDS SUMMARY | 2025-06-30 10:59 | XMS_ITS | Encounter Summary ---
Author Organization [facility] Address [address] [facility] [address] [place] [address] Phone Care Team Providers Care Knotter Name Role Phone Kike Field MD Primary Care Provider Julio Temple MD Unavailable [phone] Encounter Details Date Type Department Care Team (Late st Contact Info) Description 08/28/2023 Procedure Pass [facility], Ct Scan - [address] [address] Social History Tobacco Use Types Packs/Day Years [...] st Contact Info) Description 08/27/2024 Procedure Pass [facility], Ct [address] [address] 08/23/2025 12:00 PM EST Appointment [facility], [address] [address] Julio Louie MD [address] [place] [address] TATE@[email or web address] 09/01/2025 2:00 PM EST Telemedicine [facility] Center for Thoracic Oncology [address] [place] [address], 7th Floor, [address] [place] [address] Julio Louie MD [address] [place] [address] TATE@[email or web address] documented as of this encounter Visit Diagnoses Not on filedocumented in this encounter Care Teams Knotter Relationship Specialty Start Date End Date Kike Field MD PCP - General Internal Medicine 01/08/18 Julio Louie MD [address] [place] [phone] TATE@[email or web address] Primary Oncologist Medical Oncology 09/11/18 documented as of this encounter Additional Source Comments The information contained in this document represents components of the legal health record. It is not the complete legal health record.[facility]
--- OUTSIDE RECORDS SUMMARY | 2025-06-30 10:59 | XMS_ITS | Encounter Summary ---
Author Organization [facility] Address [address] [facility] [address] [place] [address] Phone Care Team Providers Care Reactor Service Operator Name Role Phone Kike Field MD Primary Care Provider Julio Temple MD Unavailable [phone] Encounter Details Date Type Department Care Team (Late st Contact Info) Description 07/09/2018 Procedure Pass [facility] - CT [address] [facility], 6th [place] [address] Social History Tobacco Use Types Packs/Day Years [...] st Contact Info) Description 08/27/2024 Procedure Pass [facility], Ct Scan - [facility] [address] [place] [address] 08/23/2025 12:00 PM EST Appointment [facility], Ct Scan - [address] [address] Julio Louie MD [address] [place] [address] [address] TATE@[email or web address] 09/01/2025 2:00 PM EST Telemedicine [facility] Center for Thoracic Oncology [address] [facility], 7th Floor, [address] [place] [address] Julio Louie MD [address] [place] [phone] [email or web address] documented as of this encounter Visit Diagnoses Not on filedocumented in this encounter Care Teams Reactor Service Operator Relationship Specialty Start Date End Date Kike Field MD PCP - General Internal Medicine 01/08/18 Julio Louie MD [address] [place] [phone] [email or web address] Primary Oncologist Medical Oncology 09/11/18 documented as of this encounter Additional Source Comments The information contained in this document represents components of the legal health record. It is not the complete legal health record.[facility]
--- OUTSIDE RECORDS SUMMARY | 2025-06-30 10:59 | XMS_ITS | Encounter Summary ---
Author Organization [facility] Address [address] [facility] [address] [place] [address] Phone Care Team Providers Care Clerk Funeral Detail Name Role Phone Kike Field MD Primary Care Provider Julio Temple MD Unavailable [phone] Encounter Details Date Type Department Care Team (Late st Contact Info) Description 01/08/2018 Procedure Pass [facility] - CT [address] [facility], 6th [place] [address] Social History Tobacco Use Types Packs/Day Years [...] Contact Info) Description 08/27/2024 Procedure Pass [facility], Ct Scan - [facility] 30 [place] [address] 08/23/2025 12:00 PM EST Appointment [facility], Ct Scan - [address] [address] Julio Louie MD [address] [place] [address] [address] [email or web address] 09/01/2025 2:00 PM EST Telemedicine [facility] Center for Thoracic Oncology [address] [facility], 7th Floor, [address] [place] [address] Julio Louie MD [address] [place] [phone] TATE@[email or web address] documented as of this encounter Visit Diagnoses Not on filedocumented in this encounter Care Teams Clerk Funeral Detail Relationship Specialty Start Date End Date Kike Field MD PCP - General Internal Medicine 01/08/18 Julio Louie MD [address] [place] [address] TATE@[email or web address] Primary Oncologist Medical Oncology 09/11/18 documented as of this encounter Additional Source Comments The information contained in this document represents components of the legal health record. It is not the complete legal health record.[facility]
--- OUTSIDE RECORDS SUMMARY | 2025-06-30 10:59 | XMS_ITS | Clinical Summary ---
Author Organization [facility] [address] [place] [address] [place] [phone] Phone Care Team Providers Care Fiscal Accounting Clerk Name Role Phone Omari Robbins MD Primary Care Provider [phone] Surgical History Surgery Date Site/Laterality Comments APPENDECTOMY 1987 PROCEDURE: HISTORICAL APPENDECTOMY MYOMECTOMY 1987 PROCEDURE: KS LAPS MYOMECTOMY EXC 1-4 MYOMAS 250 GM/<; COMMENT: NOT LAPAROSCOPIC SECTION PROCEDURE: KS DELIVERY ONLY; COMMENT: x 2 TONSILLECTOMY AGE [...] suspicious for malignancy Lung cancer, middle lobe (CM S/HCC V24, CMS/HCC V28) 09/04/2017 DX:Lung cancer, middle lobe (HCC); COMMENT: Right middle lobe lobectomy at [facility], 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 Lung cancer, lower lobe (CMS /HCC V24, CMS/HCC V28) DX:Lung cancer, lower lobe ( HCC) Cholelithiasis 07/06/2020 DX:Cholelithiasi s; COMMENT: April 2020: [...] CANCER? Mother PALPITATIONS, A RTHRITIS, HTN, CHOLESTEROL, [place] Other Paternal Grandmother Sister Alive BIPOLAR, PHLEBI [...] 01/28/2022 10:48 AM EDT Plan of Treatment Upcoming Encounters Date Type Department Care Team ([facility] st Contact Info) Description 09/12/2025 10:00 AM EST Appointment Radiology Department [address] [phone] Health Maintenance Due Date Last Done Comments Cholesterol Screening (Lipid Panel) 09/28/2022 Colorectal Cancer Screening: Colonoscopy 09/28/2022 Falls Risk Assessment 09/28/2022 Hepatitis C Screening 09/28/2022 Medicare Annual Wellness Visit 09/28/2022 Social Influencers of Health Screening 09/28/2022 Hypertension/CHF/CAD Annual BMP Blood Test 08/22/2023 08/22/2022 Depression Screening 10/20/2024 COVID-19 Vaccine (9 - Moderna risk season) 2025 08/02/2024, 07/14/2023, 02/10/2023, Additional history exists Influenza Vaccine (#1) 2025 , 06/28/2023, 07/05/2022, Additional history exists Breast Cancer Screening 09/08/2026 09/08/20, 05/16/2023, 05/13/2022, Additional history exists DTaP,Tdap,and Td Vaccines (4 - Td or Tdap) 07/25/2032 07/25/2022, 04/25/2011, 09/05/2000 Osteoporosis Screening (Bone Density Screening) 09/08/2034 09/08/2024, 05/14/2021, 03/31/2019 Zoster Vaccines Completed 12/28/2019, 09/19, 07/14/2013 RSV Immunization Adult Patients Completed 07/24/2023 Pneumococcal Vaccine: 50+ Years Completed 12/23/2023, 08/26/2019, 2019, Additional history exists HIB Vaccines Aged Out [...] age to complete this topic Meningococcal B Vaccine Aged Out No l onger eligible based on patient's age to complete [...] is recommended in 1 year. Mammo Location: [facility], [address] [place] [address], [address], . -------- FINAL REPORT -------- Dictated By: Salina Rainey Dictated Date: 09/09/2024 14:04 ET Assigned Physician: Salina Rainey Reviewed and Electronically Signed By: Salina Rainey Signed Date: 09/09/2024 14:08 ET Workstation ID: [id number] Transcribed By: Self Edit Transcribed Date: 09/09/2024 [...] evidence of suspicious mass or architectural distortion. No worrisome calcifications are evident. There has been no significant change from prior exam(s). BREAST DENSITY: C - [...] is recommended in 1 year. Mammo Location: [facility], [address] [place] [address], [address], . -------- FINAL REPORT -------- Dictated By: Salina Rainey Dictated Date: 09/09/2024 14:04 ET Assigned Physician: Salina Rainey Reviewed and Electronically Signed By: Salina Rainey Signed Date: 09/09/2024 14:08 ET Workstation ID: [id number] Transcribed By: Self Edit Transcribed Date: 09/09/2024 14:04 ET us Omari Robbins MD IMG BI PROCEDURES Final Result * BD Bone Density DXA Axial Skeleton (09/08/2024 2:34 PM EST) Anatomical Region Laterality Modality Wrist, Hip, L-spine Bone Densito metry 09/08/2024 3:49 PM EST Impressions 09/08/2024 3:52 PM EST Osteoporosis by WHO criteria. The [facility] Department of Internal Medicine recommends using National [...] alternative screening schedule based on juan Trimble., [facility] November 07, 2011 for patients with osteopenia (based on hip BMD T-score) is as follows: * advanced osteopenia (T scores [...] Signed Date: 09/08/2024 15:52 ET Workstation ID: [id number] Transcribed By: Self Edit Transcribed Date: 09/08/2024 [...] exam(s): 05/11/2021. 3.6% increase in lumbar spine bone mineral density which is statistically significant at the 95% confidence level. No statistically significant change in left hip [...] deformities. IMPRESSION: Osteoporosis by WHO criteria. The [facility] Department of Internal Medicine recommendsusing National Osteoporosis [...] alternative screening schedule based on juan Trimble., NEJMJan2011 for patients with osteopenia (based on hip [...] Signed Date: 09/08/2024 15:52 ET Workstation ID: [id number] Transcribed By: Self Edit Transcribed Date: 09/08/2024 15:49 ET Sonal PALMERP IMG DXA PROCEDURES Fi nal Result from Last 3 Months or Most Recently Relevant to Health Maintenance Insurance MEDICARE [facility] Care Teams Fiscal Accounting Clerk Relationship Specialty Start Date End Date Omari Robbins MD [address] [place] [address] PCP - General 05/26/23
--- OUTSIDE RECORDS SUMMARY | 2025-06-30 10:59 | XMS_ITS | Encounter Summary ---
Author Organization [facility] Address [address] [place] [address] Phone Care Team Providers Care Financial Developer Name Role Phone Kike Field MD Primary Care Provider UnavailKike Castle MD Primary Care Provider UnavailJulio Oviedo MD Unavailable [phone] Encounter Details Date Type Department Care Team (Late st Contact Info) Description 06/24/2017 Procedure Pass [facility] [address] [place] [address] Social History Tobacco Use Types Packs/Day Years [...] st Contact Info) Description 08/27/2024 Procedure Pass [facility] [address] [place] [address] 08/23/2025 12:00 PM EST Appointment [facility], Ct [facility] - [facility] [address] [place] [address] Julio Louie MD [address] [place] [address] [address] TATE@[email or web address] 09/01/2025 2:00 PM EST Telemedicine [facility] [address], 7th Floor, [address] [place] [address] Julio Louie MD [address] [place] [address] TATE@[email or web address] documented as of this encounter Visit Diagnoses Not on filedocumented in this encounter Care Teams Financial Developer Relationship Specialty Start Date End Date Kike Field MD PCP - General Internal Medicine 04/11/17 01/07/18 Kike Field MD PCP - General Internal Medicine 01/08/18 Julio Louie MD [address] [place] [address] TATE@[email or web address] Primary Oncologist Medical Oncology 09/11/18 documented as of this encounter Additional Source Comments The information contained in this document represents components of the legal health record. It is not the complete legal health record.[facility]
--- OUTSIDE RECORDS SUMMARY | 2025-06-30 10:59 | XMS_ITS | Encounter Summary ---
Author Organization [facility] Address [address] [place] [address] Phone Care Team Providers Care Staking Technician Name Role Phone Kike Field MD Primary Care Provider UnavailKike Castle MD Primary Care Provider UnavailJulio Oviedo MD Unavailable [phone] Encounter Details Date Type Department Care Team (Late st Contact Info) Description 07/10/2017 Procedure Pass [facility] [address], 6th [place] [address] Social History Tobacco Use Types Packs/Day Years [...] st Contact Info) Description 08/27/2024 Procedure Pass [facility], Ct Scan - [address] [address] 08/23/2025 12:00 PM EST Appointment [facility], Ct Scan - [facility] [address] [place] [address] Julio Louie MD [address] [place] [address] [address] TATE@[email or web address] 09/01/2025 2:00 PM EST Telemedicine [facility] Oncology [address], 7th [address], [address] [place] [address] Julio Louie MD [address] [place] [address] [address] TATE@[email or web address] documented as of this encounter Visit Diagnoses Not on filedocumented in this encounter Care Teams Staking Technician Relationship Specialty Start Date End Date Kike Field MD PCP - General Internal Medicine 04/11/17 01/07/18 Kike Field MD PCP - General Internal Medicine 01/08/18 Julio Louie MD [address] [place] [address] TATE@[email or web address] Primary Oncologist Medical Oncology 09/11/18 documented as of this encounter Additional Source Comments The information contained in this document represents components of the legal health record. It is not the complete legal health record.[facility]
== END 2025-06-30 10:36 | disposition home or self-care (01) ==
LOC: HO.RHES 09:28
PROVIDERS: PCP Internal Medicine; Visit Provider Student in an Organized Health Care Education/Training Program
DX: M05.79 Rheumatoid arthritis with rheumatoid factor of multiple sites without organ or systems involvement (principal); M81.0 Age-related osteoporosis without current pathological fracture; M17.0 Bilateral primary osteoarthritis of knee; Z79.899 Other long term (current) drug therapy; Z51.81 Encounter for therapeutic drug level monitoring; Z79.631 Long term (current) use of antimetabolite agent
CPT/HCPCS: 20610; 99214

== ENCOUNTER 2025-07-19 14:18 | Outpatient (REF) | payer MEDICARE, SELFPAY ==
--- NOTE | ~2025-07-19 | XR_ITS ---
EXAMINATION: XR KNEE, RIGHT CLINICAL INFORMATION: M17.0 - Bilateral primary osteoarthritis of knee COMPARISON: None available. TECHNIQUE: Three views of the right knee. FINDINGS: There is moderate narrowing of the medial and mild narrowing of the lateral joint spaces. There is no joint effusion. There are tricompartmental marginal osteophytes. XR/XR knee RT 3V IMPRESSION: Mild to moderate osteoarthritis. Electronically signed by: Fili Castano MD 07/19/2025 02:51 PM EDT
--- NOTE | ~2025-07-19 | XR_ITS ---
EXAMINATION: XR KNEE, LEFT CLINICAL INFORMATION: M17.0 - Bilateral primary osteoarthritis of knee COMPARISON: None available. TECHNIQUE: Three views of the left knee. FINDINGS: There is moderate narrowing of the medial joint space and mild narrowing of the lateral joint space. There is no joint effusion. There are minute marginal osteophytes in the medial patellofemoral joint. Medial intercondylar tubercle is peaked. XR/XR knee LT 3V IMPRESSION: Mild osteoarthritis. Electronically signed by: Fili Castano MD 07/19/2025 02:52 PM EDT
--- OUTSIDE RECORDS SUMMARY | 2025-07-19 15:43 | XMS_ITS | Clinical Summary ---
Author Organization [facility] Address [address] [facility] [address] [place] [address] Phone Care Team Providers Care Stitchdown Thread Laster Name Role Phone Kike Field MD Primary Care Provider Kara Julio Vidal MD Unavailable [phone] Allergies Active Allergy Reactions Criticality Noted [...] Repeat scans, which we personally reviewed with [facility] [place], show no evidence of disease. [...] Repeat scans, which we personally reviewed with [facility] today, show no evidence of disease. [...] Repeat scans, which we personally reviewed with [facility] today, show no evidence of disease. [...] Repeat scans, which we personally reviewed with [facility] today, show no evidence of disease. [...] Repeat scans, which I personally reviewed with [facility] today, show no evidence of disease. [...] Repeat scans, which I personally reviewed with [facility] today, show no evidence of disease. [...] Repeat scans, which I personally reviewed with [facility] today, show no evidence of disease. [...] Repeat scans, which I personally reviewed with [facility] today, show no evidence of disease. [...] Repeat scans, which I personally reviewed with [facility] today, show no evidence of disease. [...] st Contact Info) Description 08/27/2024 Procedure Pass [address] [address] 08/23/2025 12:00 PM EST Appointment [address] [address] Julio Louie MD [address] [place] [address] [address] TATE@[email or web address] 09/01/2025 2:00 PM EST Telemedicine [facility] [address] [facility], 7th Floor, [address] [place] [address] Julio Louie MD [address] [facility] [place] [address] TATE@[email or web address] Health Maintenance Due Date Last Done Comments [...] file Insurance MEDICARE PART A & B [email or web address] SUPPLEMENT MEDICARE PART A & B [email or web address] SUPPLEMENT MEDICARE PART A & B [employer] SUPPLEMENT MEDICARE PART A & B [employer] SUPPLEMENT MEDICARE PART A & B [email or web address] MED[employer] SUPPLEMENT MEDICARE PART A & B [employer] MED[employer] SUPPLEMENT MEDICARE PART A & B [email or web address] SUPPLEMENT MEDICARE PART A & B [employer] MED[employer] SUPPLEMENT MEDICARE PART A & B [email or web address] SUPPLEMENT Advance Directives For more information, please contact: [phone] (9AM - 5PM [place], Friday-Friday) Documents on File Type Date Recorded Patient Human Service Specialist Expl anation Healthcare Proxy 07/02/2017 1:48 PM * Full Code (Presumed) (Latest Code Status on File) Date Activated Date Inactivated Comments 06/24/2017 4:18 PM 06/27/2017 1:07 PM Care Teams Stitchdown Thread Laster Relationship Specialty Start Date End Date Kike Field MD PCP - General Internal Medicine 01/08/18 Julio Louie MD [address] [place] [address] [address] TATE@[email or web address] Primary Oncologist Medical Oncology 09/11/18 Additional Source Comments The information contained in this document represents components of the legal health record. It is not the complete legal health record.[facility]
--- OUTSIDE RECORDS SUMMARY | 2025-07-19 15:43 | XMS_ITS | Encounter Summary ---
Author Organization [facility] Address [address] [place] [address] Phone Care Team Providers Care Corporate Development Associate Name Role Phone Kike Field MD Primary Care Provider Julio Temple MD Unavailable [phone] Encounter Details Date Type Department Care Team (Late st Contact Info) Description 07/09/2018 Procedure Pass [facility] for [facility] Care - [facility] [address] [facility], 6th [place] [address] Social History Tobacco Use Types Packs/Day Years [...] st Contact Info) Description 08/27/2024 Procedure Pass [facility], Ct Scan - [facility] [address] [place] [address] 08/23/2025 12:00 PM EST Appointment [facility], Ct Scan - [address] [address] Julio Louie MD [address] [place] [address] [address] TATE@[email or web address] 09/01/2025 2:00 PM EST Telemedicine [facility] Center for Thoracic Oncology [address], 7th Floor, [address] [place] [address] Julio Louie MD [address] [place] [address] TATE@[facility] documented as of this encounter Visit Diagnoses Not on filedocumented in this encounter Care Teams Corporate Development Associate Relationship Specialty Start Date End Date Kike Field MD PCP - General Internal Medicine 01/08/18 Julio Louie MD [address] [place] [address] TATE@[email or web address] Primary Oncologist Medical Oncology 09/11/18 documented as of this encounter Additional Source Comments The information contained in this document represents components of the legal health record. It is not the complete legal health record.[facility]
--- OUTSIDE RECORDS SUMMARY | 2025-07-19 15:43 | XMS_ITS | Clinical Summary ---
Author Organization [facility] [address] [place] [address] [place] [address] Phone Care Team Providers Care Floating Derrick Operator Name Role Phone Omari Robbins MD Primary Care Provider [phone] Surgical History Surgery Date Site/Laterality Comments APPENDECTOMY 1987 PROCEDURE: HISTORICAL APPENDECTOMY MYOMECTOMY 1987 PROCEDURE: CT LAPS MYOMECTOMY EXC 1-4 MYOMAS 250 GM/<; COMMENT: NOT LAPAROSCOPIC SECTION PROCEDURE: CT DELIVERY ONLY; COMMENT: x 2 TONSILLECTOMY AGE [...] (HCC); COMMENT: Right middle lobe lobectomy at [facility], 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 Lung cancer, lower lobe [...] CANCER? Mother PALPITATIONS, A RTHRITIS, HTN, CHOLESTEROL, [place] Other Paternal Grandmother Sister Alive BIPOLAR, PHLEBI [...] Upcoming Encounters Date Type Department Care Team ([facility] st Contact Info) Description 09/12/2025 10:00 AM EST Appointment Radiology Department [address] [address] Health Maintenance Due Date Last Done Comments [...] is recommended in 1 year. Mammo Location: [facility], [address] [place] [address], [address], . -------- FINAL REPORT -------- Dictated By: Salina Rainey Dictated Date: 09/09/2024 14:04 ET Assigned Physician: Salina Rainey Reviewed and Electronically Signed By: Salina Rainey Signed Date: 09/09/2024 14:08 ET Workstation ID: [id number] Transcribed By: Self Edit Transcribed Date: 09/09/2024 [...] is recommended in 1 year. Mammo Location: [facility], [address] [place] [address], [address], . -------- FINAL REPORT -------- Dictated By: Salina Rainey Dictated Date: 09/09/2024 14:04 ET Assigned Physician: Salina Rainey Reviewed and Electronically Signed By: Salina Rainey Signed Date: 09/09/2024 14:08 ET Workstation ID: [id number] Transcribed By: Self Edit Transcribed Date: 09/09/2024 14:04 ET us Omari Robbins MD IMG BI PROCEDURES Final Result * BD Bone Density DXA Axial Skeleton (09/08/2024 2:34 PM EST) Anatomical Region Laterality Modality Wrist, Hip, L-spine Bone Densito metry 09/08/2024 3:49 PM EST Impressions 09/08/2024 3:52 PM EST Osteoporosis by WHO criteria. [facility] Department of Internal Medicine recommends using [...] alternative screening schedule based on juan Trimble., [facility] November 07, 2011 for patients with osteopenia [...] Signed Date: 09/08/2024 15:52 ET Workstation ID: [id number] Transcribed By: Self Edit Transcribed Date: 09/08/2024 [...] deformities. IMPRESSION: Osteoporosis by WHO criteria. [facility] Department of Internal Medicine recommendsusing National [...] Signed Date: 09/08/2024 15:52 ET Workstation ID: [id number] Transcribed By: Self Edit Transcribed Date: 09/08/2024 15:49 ET Sonal PALMERP IMG DXA PROCEDURES Fi nal Result from Last 3 Months or Most Recently Relevant to Health Maintenance Insurance MEDICARE [facility] Care Teams Floating Derrick Operator Relationship Specialty Start Date End Date Omari Robbins MD [address] [place] [address] PCP - General 05/26/23
--- OUTSIDE RECORDS SUMMARY | 2025-07-19 15:44 | XMS_ITS | Encounter Summary ---
Author Organization [facility] Address [address] [place] [address] Phone Care Team Providers Care Video Network Engineer Name Role Phone Kike Field MD Primary Care Provider Julio Temple MD Unavailable [phone] Encounter Details Date Type Department Care Team (Late st Contact Info) Description 08/28/2023 Procedure Pass [facility], Ct Scan - [address] [address] Social History Tobacco Use Types Packs/Day Years [...] st Contact Info) Description 08/27/2024 Procedure Pass [facility], Ct [address] [address] 08/23/2025 12:00 PM EST Appointment [facility], [address] [address] Julio Louie MD [address] [place] [address] TATE@[facility] 09/01/2025 2:00 PM EST Telemedicine [facility] Center for Thoracic Oncology [address] [place] [address], 7th Floor, [address] [place] [address] Julio Louie MD [address] [place] [address] TATE@[facility] documented as of this encounter Visit Diagnoses Not on filedocumented in this encounter Care Teams Video Network Engineer Relationship Specialty Start Date End Date Kike Field MD PCP - General Internal Medicine 01/08/18 Julio Louie MD [address] [place] [phone] TATE@[email or web address] Primary Oncologist Medical Oncology 09/11/18 documented as of this encounter Additional Source Comments The information contained in this document represents components of the legal health record. It is not the complete legal health record.[facility]
--- OUTSIDE RECORDS SUMMARY | 2025-07-19 15:44 | XMS_ITS | Encounter Summary ---
Author Organization [facility] Address [address] [place] [address] Phone Care Team Providers Care Cut Pressman Name Role Phone Kike Field MD Primary Care Provider UnavailKike Castle MD Primary Care Provider UnavailJulio Oviedo MD Unavailable [phone] Encounter Details Date Type Department Care Team (Late st Contact Info) Description 06/24/2017 Procedure Pass [facility] [address] [place] [address] Social History Tobacco Use Types Packs/Day Years [...] st Contact Info) Description 08/27/2024 Procedure Pass [facility], Ct Scan - [facility] 30 [place] [address] 08/23/2025 12:00 PM EST Appointment [facility], Ct Scan - [facility] 30 [place] [address] Julio Louie MD [address] [place] [address] [address] TATE@[facility] 09/01/2025 2:00 PM EST Telemedicine [facility] for [facility] Oncology [address] [facility], 7th Floor, [address] [place] [address] Julio Louie MD [address] [place] [phone] TATE@[facility] documented as of this encounter Visit Diagnoses Not on filedocumented in this encounter Care Teams Cut Pressman Relationship Specialty Start Date End Date Kike Field MD PCP - General Internal Medicine 04/11/17 01/07/18 Kike Field MD PCP - General Internal Medicine 01/08/18 Julio Louie MD [address] [place] [phone] TATE@[email or web address] Primary Oncologist Medical Oncology 09/11/18 documented as of this encounter Additional Source Comments The information contained in this document represents components of the legal health record. It is not the complete legal health record.[facility]
--- OUTSIDE RECORDS SUMMARY | 2025-07-19 15:44 | XMS_ITS | Encounter Summary ---
Author Organization [facility] Address [address] [place] [address] Phone Care Team Providers Care Agricultural Produce Sorter Name Role Phone Kike Field MD Primary Care Provider Julio Temple MD Unavailable [phone] Encounter Details Date Type Department Care Team (Late st Contact Info) Description 01/08/2018 Procedure Pass [facility] for [facility] - CT [address], 6th [place] [address] Social History Tobacco Use Types Packs/Day Years [...] st Contact Info) Description 08/27/2024 Procedure Pass [facility], Ct Scan - [facility] 30 [place] [address] 08/23/2025 12:00 PM EST Appointment [facility], Ct Scan - [address] [address] Julio Louie MD [address] [place] [address] [place] [address] [address] TATE@[facility] 09/01/2025 2:00 PM EST Telemedicine [facility] Center for Thoracic Oncology [address], 7th Floor, [address] [place] [address] Julio Louie MD [address] [place] [phone] TATE@[facility] documented as of this encounter Visit Diagnoses Not on filedocumented in this encounter Care Teams Agricultural Produce Sorter Relationship Specialty Start Date End Date Kike Field MD PCP - General Internal Medicine 01/08/18 Julio Louie MD [address] [place] [address] TATE@[facility] Primary Oncologist Medical Oncology 09/11/18 documented as of this encounter Additional Source Comments The information contained in this document represents components of the legal health record. It is not the complete legal health record.[facility]
--- OUTSIDE RECORDS SUMMARY | 2025-07-19 15:44 | XMS_ITS | Encounter Summary ---
Author Organization [facility] Address [address] [facility] [address] [place] [address] Phone Care Team Providers Care Liquid Compounder Name Role Phone Kike Field MD Primary Care Provider Julio Temple MD Unavailable [phone] Encounter Details Date Type Department Care Team (Late st Contact Info) Description 07/26/2021 Procedure Pass [facility] for [facility] - CT [address] [facility], 6th [place] [address] Social History Tobacco Use Types Packs/Day Years [...] st Contact Info) Description 08/27/2024 Procedure Pass [facility], Ct Scan - [facility] 30 [place] [address] 08/23/2025 12:00 PM EST Appointment [facility], Ct Scan - [address] [address] Julio Louie MD [address] [place] [address] [address] TATE@[facility] 09/01/2025 2:00 PM EST Telemedicine [facility] Center for Thoracic Oncology [address] [facility], 7th Floor, [address] [place] [address] Julio Louie MD [address] [place] [address] TATE@[facility] documented as of this encounter Visit Diagnoses Not on filedocumented in this encounter Care Teams Liquid Compounder Relationship Specialty Start Date End Date Kike Field MD PCP - General Internal Medicine 01/08/18 Julio Louie MD [address] [place] [phone] TATE@[email or web address] Primary Oncologist Medical Oncology 09/11/18 documented as of this encounter Additional Source Comments The information contained in this document represents components of the legal health record. It is not the complete legal health record.[facility]
--- OUTSIDE RECORDS SUMMARY | 2025-07-19 15:44 | XMS_ITS | Encounter Summary ---
Author Organization [facility] Address [address] [address] [place] [address] Phone Care Team Providers Care Dairy Husbandry Worker Name Role Phone Kike Field MD Primary Care Provider Julio Temple MD Unavailable [phone] Encounter Details Date Type Department Care Team (Late st Contact Info) Description 08/23/[address] [address] Social History Tobacco Use Types Packs/Day Years [...] (Late st Contact Info) Description 08/27/[address] [address] 08/23/2025 12:00 PM EST Appointment [facility], Ct Scan - [address] [address] Julio Louie MD [address] [place] [address] [address] TATE@[facility] 09/01/2025 2:00 PM EST Telemedicine [facility] [address] [facility], 7th Floor, [address] [place] [address] Julio Louie MD [address] [place] [address] [address] TATE@[facility] documented as of this encounter Visit Diagnoses Not on filedocumented in this encounter Care Teams Dairy Husbandry Worker Relationship Specialty Start Date End Date Kike Field MD PCP - General Internal Medicine 01/08/18 Julio Louie MD [address] [place] [address] TATE@[facility] Primary Oncologist Medical Oncology 09/11/18 documented as of this encounter Additional Source Comments The information contained in this document represents components of the legal health record. It is not the complete legal health record.[facility]
--- OUTSIDE RECORDS SUMMARY | 2025-07-19 15:44 | XMS_ITS | Encounter Summary ---
Author Organization [facility] Address [address] [facility] [address] [place] [address] Phone Care Team Providers Care Truck Caterer Name Role Phone Kike Field MD Primary Care Provider UnavailKike Castle MD Primary Care Provider UnavailJulio Oviedo MD Unavailable [phone] Encounter Details Date Type Department Care Team (Late st Contact Info) Description 07/10/2017 Procedure Pass [facility] for [facility] Care - [place] [address] [facility], 6th [place] [address] Social History Tobacco Use Types Packs/Day Years [...] st Contact Info) Description 08/27/2024 Procedure Pass [facility], Ct Scan - [facility] [address] [place] [address] 08/23/2025 12:00 PM EST Appointment [facility], Ct Scan - [facility] 30 [place] [address] Julio Louie MD [address] [place] [address] [address] TATE@[facility] 09/01/2025 2:00 PM EST Telemedicine [facility] Center for Thoracic Oncology [address] [facility], 7th Floor, [address] [place] [address] Julio Louie MD [address] [place] [address] [address] TATE@[facility] documented as of this encounter Visit Diagnoses Not on filedocumented in this encounter Care Teams Truck Caterer Relationship Specialty Start Date End Date Kike Field MD PCP - General Internal Medicine 04/11/17 01/07/18 Kike Field MD PCP - General Internal Medicine 01/08/18 Julio Louie MD [address] [place] [phone] TATE@[facility] Primary Oncologist Medical Oncology 09/11/18 documented as of this encounter Additional Source Comments The information contained in this document represents components of the legal health record. It is not the complete legal health record.[facility]
--- OUTSIDE RECORDS SUMMARY | 2025-07-19 15:44 | XMS_ITS | Encounter Summary ---
Author Organization [facility] Address [address] [facility] [facility] [address] [facility] [address] [place] [address] Phone Care Team Providers Care Corporate Tax Preparer Name Role Phone Kike Field MD Primary Care Provider Julio Temple MD Unavailable [phone] Encounter Details Date Type Department Care Team (Late st Contact Info) Description 06/27/2020 Procedure Pass [facility] [place] [address] [facility], 6th [place] [address] Social History Tobacco Use Types Packs/Day Years [...] st Contact Info) Description 08/27/2024 Procedure Pass [facility], Ct Scan - [facility] [address] [place] [address] 08/23/2025 12:00 PM EST Appointment [facility], Ct Scan - [address] [address] Julio Louie MD [address] [place] [address] [address] [email or web address] 09/01/2025 2:00 PM EST Telemedicine [facility] [address] [facility], 7th Floor, [address] [place] [address] Julio Louie MD [address] [place] [phone] [email or web address] documented as of this encounter Visit Diagnoses Not on filedocumented in this encounter Care Teams Corporate Tax Preparer Relationship Specialty Start Date End Date Kike Field MD PCP - General Internal Medicine 01/08/18 Julio Louie MD [address] [place] [phone] [email or web address] Primary Oncologist Medical Oncology 09/11/18 documented as of this encounter Additional Source Comments The information contained in this document represents components of the legal health record. It is not the complete legal health record.[facility]
--- OUTSIDE RECORDS SUMMARY | 2025-07-19 15:44 | XMS_ITS | Encounter Summary ---
Author Organization [facility] Address [address] [facility] [address] [place] [address] Phone Care Team Providers Care Tax Revenue Officer Name Role Phone Kike Field MD Primary Care Provider UnavailKike Castle MD Primary Care Provider Julio Temple MD Unavailable [phone] Encounter Details Date Type Department Care Team (Late st Contact Info) Description 05/16/2017 Procedure Pass [facility] Imaging [address] [place] [address] Social History Tobacco Use Types Packs/Day Years [...] st Contact Info) Description 08/27/2024 Procedure Pass [address] [address] 08/23/2025 12:00 PM EST Appointment [facility] [address] [place] [address] Julio Louie MD [address] [place] [address] [address] [email or web address] 09/01/2025 2:00 PM EST Telemedicine [facility] [address] [place] [address], 7th Floor, [address] [place] [address] Julio Louie MD [address] [place] [address] [address] [email or web address] documented as of this encounter Visit Diagnoses Not on filedocumented in this encounter Care Teams Tax Revenue Officer Relationship Specialty Start Date End Date Kike Field MD PCP - General Internal Medicine 04/11/17 01/07/18 Kike Field MD PCP - General Internal Medicine 01/08/18 Julio Louie MD [address] [place] [phone] [email or web address] Primary Oncologist Medical Oncology 09/11/18 documented as of this encounter Additional Source Comments The information contained in this document represents components of the legal health record. It is not the complete legal health record.[facility]
--- OUTSIDE RECORDS SUMMARY | 2025-07-19 15:44 | XMS_ITS | Encounter Summary ---
Author Organization [facility] Address [address] [facility] [address] [place] [address] Phone Care Team Providers Care Environmental Science Program Director Name Role Phone Kike Field MD Primary Care Provider Julio Temple MD Unavailable [phone] Encounter Details Date Type Department Care Team (Late st Contact Info) Description 07/27/[address] [facility] [place] [address] [facility], 6th [place] [address] Social History Tobacco Use Types Packs/Day Years [...] Pass [facility], Ct Scan - [facility] [address] [place] [address] 08/23/2025 12:00 PM EST Appointment [facility], Ct Scan - [address] [address] Julio Louie MD [address] [place] [address] [address] [email or web address] 09/01/2025 2:00 PM EST Telemedicine [facility] [address] [facility], 7th Floor, [address] [place] [address] Julio Louie MD [address] [place] [id number] [email or web address] documented as of this encounter Visit Diagnoses Not on filedocumented in this encounter Care Teams Environmental Science Program Director Relationship Specialty Start Date End Date Kike Field MD PCP - General Internal Medicine 01/08/18 Julio Louie MD [address] [place] [phone] [email or web address] Primary Oncologist Medical Oncology 09/11/18 documented as of this encounter Additional Source Comments The information contained in this document represents components of the legal health record. It is not the complete legal health record.[facility]
== END 2025-07-19 14:19 | disposition home or self-care (01) ==
LOC: HO.XRAY 14:18
PROVIDERS: PCP Internal Medicine; Visit Provider Student in an Organized Health Care Education/Training Program
DX: M17.0 Bilateral primary osteoarthritis of knee (principal)
CPT/HCPCS: 73562

== ENCOUNTER → 2025-07-19 14:23 | Outpatient (BNV) | payer MEDICARE, SELFPAY | PROVIDERS: PCP Internal Medicine; Visit Provider Radiology Diagnostic Radiology | DX: M17.0 Bilateral primary osteoarthritis of knee (principal) | CPT/HCPCS: 73562 ==